=== PATIENT | female | born 1975 | race African-American/Black ===

== ENCOUNTER 2016-02-23 09:41 | Emergency (ER) | payer SELFPAY ==
[2016-02-23 09:49] VITALS: BP 121/61
--- NOTE | 2016-02-23 10:08 | ER Document Report ---
ED Medical Screen (RME) - General Time seen by provider: 10:06 Mode of Arrival: Ambulatory Information source: Patient TRAVEL OUTSIDE OF THE [place] IN LAST 30 DAYS: No - HPI Onset: Other - long time not been to md Onset/Duration: Persistent Quality of pain: Pressure Severity: Moderate Pain Level: 2 - Related Data Smoking: Non-smoker Frequency of alcohol use: None Drug Abuse: None <EDYTA RAYMOND - Last Filed: 02/23/16 10:05> <OLEGARIO ROSS - Last Filed: 03/02/16 12:20> - General Chief Complaint: Urinary Frequency Stated Complaint: FREQUENT URINATION Notes: 40 yo female presents to ed for urine frequency and [facility] told her to check for diabetes. (EDYTA RAYMOND) Course - Laboratory Result Diagrams: 02/23/16 10:20 02/23/16 10:20 <OLEGARIO ROSS - Last Filed: 03/02/16 12:20> - Vital Signs Vital signs: Temp Pulse Resp BP Pulse Ox 98.4 F 73 16 121/61 100 02/23/16 09:48 02/23/16 09:48 02/23/16 09:48 02/23/16 09:48 02/23/16 09:48 (EDYTA RAYMOND) (OLEGARIO ROSS) - Laboratory Laboratory results interpreted by me: 02/23/16 02/23/16 10:20 10:20 Carbon Dioxide 31 H Glucose 73 L Urine Ascorbic Acid 40 H (OLEGARIO ROSS) Doctor's Discharge <EDYTA RAYMOND - Last Filed: 02/23/16 10:05> <OLEGARIO ROSS - Last Filed: 03/02/16 12:20> - Discharge Clinical Impression: Increased frequency of urination Condition: Stable Disposition: HOME, SELF-CARE Additional Instructions: You have been seen and evaluated for concerns that you possibly would be diabetic and urinary frequency since her . Currently your blood sugar is low not high there is no glucose into the urine sore not seeing any active signs of diabetes in terms of the chronic condition of the urinary frequency since your we want that he follow up with primary care physician and may need a referral to a urologist. Follow-up with the primary care physician in 3-5 days return for increasing worsening or new symptoms
[2016-02-23 10:38] LABS: ABSOLUTE EOSINOPHILS # (AUTO) 0.1 10^3/uL (0.0-0.6); ABSOLUTE LYMPHOCYTES (AUTO) 1.5 10^3/uL (0.5-4.7); ABSOLUTE MONOCYTES (AUTO) 0.4 10^3/uL (0.1-1.4); ABSOLUTE NEUT (AUTO) 3.8 10^3/uL (1.7-8.2); BASOPHILS % (AUTO) 0.5 % (0-2); EOSINOPHILS % (AUTO) 2.2 % (0-6); HEMATOCRIT 38.9 % (36.0-47.0); HGB HCT DIFFERENCE 0.1; LYMPHOCYTES % (AUTO) 25.5 % (13-45); MEAN CORPUSCULAR HEMOGLOBIN 31.4 pg (27.0-33.4); MEAN CORPUSCULAR HGB CONC 33.3 g/dL (32.0-36.0); MEAN CORPUSCULAR VOLUME 94 fl (80-97); MONOCYTES % (AUTO) 6.6 % (3-13); RED BLOOD COUNT 4.13 10^6/uL (3.72-5.28); RED CELL DISTRIBUTION WIDTH 13.2 % (11.5-14.0); SEGMENTED NEUTROPHILS % (AUTO) 65.2 % (42-78); WHITE BLOOD COUNT 5.9 10^3/uL (4.0-10.5)
[2016-02-23 10:42] LABS: APPEARANCE,URINE CLEAR; BILIRUBIN,URINE NEGATIVE (NEGATIVE); GLUCOSE, URINE NEGATIVE (NEGATIVE); KETONES,URINE NEGATIVE (NEGATIVE); LEUKOCYTE ESTERASE,URINE NEGATIVE (NEGATIVE); NITRITE,URINE NEGATIVE (NEGATIVE); PROTEIN,URINE NEGATIVE (NEGATIVE); UROBILINOGEN,URINE NEGATIVE mg/dL (<2.0)
[2016-02-23 10:58] LABS: ALANINE AMINOTRANSFERASE 29 U/L (9-52); ALBUMIN 3.8 g/dL (3.5-5.0); ALKALINE PHOSPHATASE 53 U/L (38-126); ANION GAP 9 (5-19); ASPARTATE AMINO TRANSFERASE 24 U/L (14-36); BILIRUBIN,TOTAL 0.5 mg/dL (0.2-1.3); BLOOD UREA NITROGEN 14 mg/dL (7-20); CALCIUM 9.4 mg/dL (8.4-10.2); CARBON DIOXIDE 31 mmol/L (22-30); CHLORIDE 101 mmol/L (98-107); CREATININE RESULT 0.93 mg/dL (0.52-1.25); GLUCOSE 73 mg/dL (75-110); POTASSIUM 4.2 mmol/L (3.6-5.0); SODIUM 140.6 mmol/L (137-145); TOTAL PROTEIN 7.3 g/dL (6.3-8.2)
--- NOTE | 2016-02-23 12:21 | ER Document Report ---
ED GI/ <CODYSABIOLEGARIO - Last Filed: 02/23/16 12:36> - General Mode of Arrival: Ambulatory Information source: Patient TRAVEL OUTSIDE OF THE [place] IN LAST 30 DAYS: No - HPI Patient complains to provider of: Other - frequent urination Onset: Other - x3 weeks Timing/Duration: Persistent Quality of pain: No pain Similar symptoms previously: No Recently seen / treated by doctor: No <KAYLYN ROSE - Last Filed: 02/23/16 16:20> - General Chief Complaint: Urinary Frequency Stated Complaint: FREQUENT URINATION Notes: Patient is a 40 year old female that presents to the emergency department today with complaints of frequent urination along with concerns of diabetes mellitus. Patient states a coworker did a finger stick on her three weeks ago and it was "high". Patient states she has also had finger tingling for quite some time. Patient states she does not have chronic neck problems. (KAYLYN ROSE) Past Medical History - General Information source: Patient Last Menstrual Period: january 2016 - Social History Smoking Status: Unknown if Ever Smoked Cigarette use (# per day): No Chew tobacco use (# tins/day): No Frequency of alcohol use: None Drug Abuse: None Lives with: Family Family History: Reviewed & Not Pertinent Patient has suicidal ideation: No Patient has homicidal ideation: No - Medical History Medical History: Negative Surgical Hx: Negative <KAYLYN ROSE - Last Filed: 02/23/16 16:20> Review of Systems - Review of Systems Constitutional: No symptoms reported EENT: No symptoms reported Cardiovascular: No symptoms reported Respiratory: No symptoms reported Gastrointestinal: No symptoms reported Genitourinary: See HPI, Frequency Female Genitourinary: No symptoms reported Musculoskeletal: denies: Neck pain Skin: No symptoms reported Hematologic/Lymphatic: No symptoms reported Neurological/Psychological: See HPI, Tingling - finger tips -: Yes All other systems reviewed and negative <KAYLYN ROSE - Last Filed: 02/23/16 16:20> Physical Exam - General General appearance: Appears well In distress: None - HEENT Head: Normocephalic, Atraumatic Eyes: Normal Conjunctiva: Normal - Respiratory Respiratory status: No respiratory distress - Cardiovascular Rhythm: Regular - Abdominal Inspection: Normal Distension: No distension Bowel sounds: Normal Tenderness: Nontender - Extremities General upper extremity: Normal inspection, Nontender. No: Edema General lower extremity: Normal inspection, Nontender. No: Edema - Neurological Neuro grossly intact: Yes Cognition: Normal Orientation: AAOx4 - Psychological Associated symptoms: Normal affect, Normal mood - Skin Skin Temperature: Warm Skin Moisture: Dry Skin Color: Normal <KAYLYN ROSE - Last Filed: 02/23/16 16:20> - Vital signs Vitals: Temp Pulse Resp BP Pulse Ox 98.4 F 73 16 121/61 100 02/23/16 09:48 02/23/16 09:48 02/23/16 09:48 02/23/16 09:48 02/23/16 09:48 (OLEGARIO ROSS) (KAYLYN ROSE) Course - Laboratory Result Diagrams: 02/23/16 10:20 02/23/16 10:20 <OLEGARIO ROSS - Last Filed: 02/23/16 12:36> - Laboratory Result Diagrams: 02/23/16 10:20 02/23/16 10:20 <KAYLYN ROSE - Last Filed: 02/23/16 16:20> - Re-evaluation Re-evalutation: 02/23/16 12:34 I personally performed the services described in the documentation, reviewed and edited the documentation which was dictated to my scribe in my presence, and it accurately records my words and actions. Patient presents emergency Department with a 2 full complaint. She said she recently moved here from [facility] that at work today someone checked her blood sugar and told her she might have diabetes. Patient presents emergency department her blood sugars low she has no glucose in the urine also reports that since her over a year ago she's been playing more than usual but is not any different than it has been since her or year ago. She is well-appearing nontoxic with a nonacute medical screening examination negative acute labs urinary tract infection or signs of active diabetes. Discussed with her plans for calling Medicare calling to get a primary care physician who is seeing new patients at that point she can get referred to a urologist for further evaluation and follow-up. She verbalizes understanding of this given discharge instructions stable to be discharged follow-up for increasing worsening or new symptoms (OLEGARIO ROSS) - Vital Signs Vital signs: Temp Pulse Resp BP Pulse Ox 98.4 F 73 16 121/61 100 02/23/16 09:48 02/23/16 09:48 02/23/16 09:48 02/23/16 09:48 02/23/16 09:48 (OLEGARIO ROSS) (KAYLYN ROSE) - Laboratory Laboratory results interpreted by me: 02/23/16 02/23/16 10:20 10:20 Carbon Dioxide 31 H Glucose 73 L Urine Ascorbic Acid 40 H (OLEGARIO ROSS) (KAYLYN ROSE) Scribe Documentation - Scribe Written by Scribe:: Camille Quintana, 1620 (02/23/2016) acting as scribe for :: Cody <KAYLYN ROSE - Last Filed: 02/23/16 16:20>
--- NOTE | 2016-03-05 10:54 | ER Document Report ---
Doctor's Note Notes: 03/05/16 10:52 diagnosis 1. chronic urinary frequency
== END 2016-02-23 12:37 | disposition home or self-care (01) ==
LOC: ER 09:41
DX: R35.0 Frequency of micturition (principal)
CPT/HCPCS: 36415; 80053; 81001; 84703; 85025; 99283

== ENCOUNTER 2016-06-21 21:59 | Emergency (ER) | payer SELFPAY ==
[2016-06-21 22:44] VITALS: BP 130/79
== END 2016-06-21 23:13 | disposition left against medical advice (07) ==
LOC: ER 21:59
DX: Z53.21 Procedure and treatment not carried out due to patient leaving prior to being seen by health care provider (principal)

== ENCOUNTER 2016-06-22 09:38 | Emergency (ER) | payer SELFPAY ==
--- NOTE | 2016-06-22 10:07 | ER Document Report ---
ED Medical Screen (RME) - General Chief Complaint: Vag Bleeding, +preg <12wks Stated Complaint: VAGINAL BLEEDING/PREGNACY Time seen by provider: 10:05 Mode of Arrival: Ambulatory Information source: Patient Notes: 40-year-old female 6, para 4, last normal menstrual period at the end of March presents to the emergency room with vaginal bleeding. Patient does report cramping. Patient does not know what her blood type is. Bedside sono performed to establish a possible second of third trimester . That does not appear to be the case. TRAVEL OUTSIDE OF THE [place] IN LAST 30 DAYS: No - Related Data Allergies/Adverse Reactions: No Known Allergies Allergy (Verified 06/22/16 09:44) Past Medical History Renal/ Medical History: Denies: Hx Peritoneal Dialysis Physical Exam - Vital signs Vitals: Temp Pulse Resp BP Pulse Ox 98.6 F 82 18 127/69 H 98 06/22/16 09:44 06/22/16 09:44 06/22/16 09:44 06/22/16 09:44 06/22/16 09:44 Course - Vital Signs Vital signs: Temp Pulse Resp BP Pulse Ox 98.6 F 82 18 127/69 H 98 06/22/16 09:44 06/22/16 09:44 06/22/16 09:44 06/22/16 09:44 06/22/16 09:44
[2016-06-22 10:50] LABS: ABSOLUTE EOSINOPHILS # (AUTO) 0.1 10^3/uL (0.0-0.6); ABSOLUTE MONOCYTES (AUTO) 0.5 10^3/uL (0.1-1.4); ABSOLUTE NEUT (AUTO) 5.3 10^3/uL (1.7-8.2); BASOPHILS % (AUTO) 0.4 % (0-2); EOSINOPHILS % (AUTO) 1.1 % (0-6); HEMATOCRIT 36.4 % (36.0-47.0); HEMOGLOBIN 12.1 g/dL (12.0-15.5); HGB HCT DIFFERENCE -0.1; LYMPHOCYTES % (AUTO) 24.8 % (13-45); MEAN CORPUSCULAR HEMOGLOBIN 31.5 pg (27.0-33.4); MEAN CORPUSCULAR HGB CONC 33.2 g/dL (32.0-36.0); MEAN CORPUSCULAR VOLUME 95 fl (80-97); MONOCYTES % (AUTO) 6.9 % (3-13); RED BLOOD COUNT 3.85 10^6/uL (3.72-5.28); RED CELL DISTRIBUTION WIDTH 13.6 % (11.5-14.0); SEGMENTED NEUTROPHILS % (AUTO) 66.8 % (42-78); WHITE BLOOD COUNT 7.9 10^3/uL (4.0-10.5)
[2016-06-22 11:09] LABS: ALANINE AMINOTRANSFERASE 22 U/L (9-52); ALBUMIN 3.5 g/dL (3.5-5.0); ALKALINE PHOSPHATASE 54 U/L (38-126); ANION GAP 7 (5-19); ASPARTATE AMINO TRANSFERASE 24 U/L (14-36); BILIRUBIN,DIRECT 0.2 mg/dL (0.0-0.4); BILIRUBIN,TOTAL 0.5 mg/dL (0.2-1.3); BLOOD UREA NITROGEN 18 mg/dL (7-20); CALCIUM 9.1 mg/dL (8.4-10.2); CARBON DIOXIDE 29 mmol/L (22-30); CHLORIDE 105 mmol/L (98-107); CREATININE RESULT 0.96 mg/dL (0.52-1.25); GLUCOSE 86 mg/dL (75-110); POTASSIUM 4.1 mmol/L (3.6-5.0); SODIUM 141.1 mmol/L (137-145); TOTAL PROTEIN 6.6 g/dL (6.3-8.2)
--- NOTE | 2016-06-22 11:32 | ER Document Report ---
ED GI/ - General Chief Complaint: Vag Bleeding, +preg <12wks Stated Complaint: VAGINAL BLEEDING/PREGNACY Time seen by provider: 11:29 Mode of Arrival: Ambulatory Information source: Patient Notes: 40-year-old female presents to ED for vaginal bleeding while she is supposed to be 9 weeks . Last menstrual period was the end of March. Patient states she has some cramping and does not know what her blood type is. Patient states she has been. 6 times has 4 live children and 1 miscarriage TRAVEL OUTSIDE OF THE [place] IN LAST 30 DAYS: No - HPI Patient complains to provider of: Abdominal pain - Cramping, Vaginal bleeding Onset: Yesterday Timing/Duration: Intermittent Quality of pain: Cramping Severity at maximum: Moderate Severity in ED: Moderate Pain Level: 3 Location: Pelvis Vaginal bleeding (Compared to normal period): Similar Associated symptoms: Other - Vaginal bleeding Exacerbated by: Denies Relieved by: Denies Similar symptoms previously: Yes Recently seen / treated by doctor: Yes - Related Data Allergies/Adverse Reactions: No Known Allergies Allergy (Verified 06/22/16 11:08) Past Medical History - General Information source: Patient - Social History Smoking Status: Never Smoker Chew tobacco use (# tins/day): No Frequency of alcohol use: None Drug Abuse: None Occupation: housekeeping Lives with: Spouse/Significant other - In children Family History: Arthritis, CAD, CVA, DM, Hyperlipidemia, Hypertension Patient has suicidal ideation: No Patient has homicidal ideation: No - Past Medical History Cardiac Medical History: Reports: None Pulmonary Medical History: Reports: None EENT Medical History: Reports: None Neurological Medical History: Reports: None Endocrine Medical History: Reports: Hx Hypothyroidism Renal/ Medical History: Reports: None Malignancy Medical History: Reports: None GI Medical History: Reports: None Musculoskeltal Medical History: Reports None Skin Medical History: Reports None Psychiatric Medical History: Reports: None Traumatic Medical History: Reports: None Infectious Medical History: Reports: None Past Surgical History: Reports: Hx Section Review of Systems - Review of Systems Constitutional: No symptoms reported EENT: No symptoms reported Cardiovascular: No symptoms reported Respiratory: No symptoms reported Gastrointestinal: No symptoms reported Genitourinary: No symptoms reported Female Genitourinary: , Vaginal bleeding, Other - Mild cramping Musculoskeletal: No symptoms reported Skin: No symptoms reported Hematologic/Lymphatic: No symptoms reported Neurological/Psychological: No symptoms reported -: Yes All other systems reviewed and negative Physical Exam - Vital signs Vitals: Temp Pulse Resp BP Pulse Ox 98.6 F 82 18 127/69 H 98 06/22/16 09:44 06/22/16 09:44 06/22/16 09:44 06/22/16 09:44 06/22/16 09:44 Interpretation: Normal - General General appearance: Appears well, Alert - HEENT Head: Normocephalic, Atraumatic Eyes: Normal Pupils: PERRL - Respiratory Respiratory status: No respiratory distress Chest status: Nontender Breath sounds: Normal Chest palpation: Normal - Cardiovascular Rhythm: Regular Heart sounds: Normal auscultation Murmur: No - Abdominal Inspection: Gravid female Distension: No distension Bowel sounds: Normal Tenderness: Tender - Pelvic Organomegaly: No organomegaly - Back Back: Normal, Nontender - Extremities General upper extremity: Normal inspection, Nontender, Normal color, Normal ROM , Normal temperature General lower extremity: Normal inspection, Nontender, Normal color, Normal ROM , Normal temperature, Normal weight bearing. No: Yulisa's sign - Neurological Neuro grossly intact: Yes Cognition: Normal Orientation: AAOx4 [place] Coma Scale Eye Opening: Spontaneous [place] Coma Scale Verbal: Oriented [place] Coma Scale Motor: Obeys Commands [place] Coma Scale Total: 15 Speech: Normal Motor strength normal: LUE, RUE, LLE, RLE Sensory: Normal - Psychological Associated symptoms: Normal affect, Normal mood - Skin Skin Temperature: Warm Skin Moisture: Dry Skin Color: Normal Course - Re-evaluation Re-evalutation: 06/22/16 12:06 Discussed urine and ultrasound with patient and written report of blood work urine and ultrasound given to patient to follow-up with the [facility]. Patient to repeat her hCG Quant in 48 hours. - Vital Signs Vital signs: Temp Pulse Resp BP Pulse Ox 98.6 F 82 18 127/69 H 98 06/22/16 09:44 06/22/16 09:44 06/22/16 09:44 06/22/16 09:44 06/22/16 09:44 - Laboratory Result Diagrams: 06/22/16 10:25 06/22/16 10:25 - Diagnostic Test Radiology reviewed: Image reviewed, Reports reviewed Discharge - Discharge Clinical Impression: Vaginal bleeding, Negative test Condition: Stable Disposition: HOME, SELF-CARE Additional Instructions: VAGINAL BLEEDING: You are having an episode of abnormal bleeding. Causes of abnormal vaginal bleeding can include miscarriage or tubal , tumors such as cancer or benign fibroids, medication effects, or hormone imbalance. Testing can eliminate unsuspected , tumors, or infection as a cause. "Dysfunctional uterine bleeding" is due to hormone imbalance, and is especially common at times when the normal cycle is disturbed -- whether by recent , use of control pills or hormones, or impending menopause. If the bleeding is innocent, most commonly a short course of hormones is given to restore the uterus to normal. Sometimes, the normal menstrual cycle corrects itself naturally. Sometimes , brief hormone therapy, or even a D&C is required. Your physician will advise you. Treatment for anemia may be required if bleeding is severe. You should rest and avoid intercourse until the bleeding is controlled. Call the doctor or return for re-examination if you feel faint, have increasing pain, or have a major increase in the amount of bleeding. NORMAL EXAM AND WORKUP: At this time, except for vaginal bleeding, your examination and workup show no significant abnormality. No significant abnormal physical findings were noted. All laboratory, EKG, and imaging (x-ray, CT scans, ultrasound) studies that were ordered show no significant abnormality. Although your examination and all studies that were ordered showed no significant abnormal finding, there are no examinations and no studies that are 100% accurate. There is always the possibility that some abnormality could exist and not be detected with physical examination or within the limits and capabilities of laboratory and other studies. You should return or follow up as you were instructed on your visit today for further evaluation if your symptoms do not resolve. FOLLOW-UP CARE: If you have been referred to a physician for follow-up care, call the physician s office for an appointment as you were instructed or within the next two days. If you experience worsening or a significant change in your symptoms (very heavy bleeding with large clots of blood, passage of tissue, more severe abdominal / pelvic pain or cramping, feeling faint or severe weakness, fever, etc.), notify the physician immediately or return to the Emergency Department at any time for re-evaluation. [facility] [address] [place] [address] [phone] Forms: Follow-Up Laboratory Testing, Return to Work Referrals: [facility] [Provider Group] - Follow up as needed
[2016-06-22 12:12] VITALS: BP 110/52
== END 2016-06-22 12:10 | disposition home or self-care (01) ==
LOC: ER 09:38
DX: N93.9 Abnormal uterine and vaginal bleeding, unspecified (principal); Z32.02 Encounter for pregnancy test, result negative; R25.2 Cramp and spasm
CPT/HCPCS: 36415; 76817; 80053; 84702; 85025; 86900; 86901; 93976; 99284

== ENCOUNTER → 2016-07-05 | Outpatient (CLI) | payer SELFPAY | LOC: LAB 13:27 | PROVIDERS: ATTEND Nurse Practitioner Family | DX: O20.9 Hemorrhage in early pregnancy, unspecified (principal) | CPT/HCPCS: 36415; 84702 ==

== ENCOUNTER → 2016-10-26 | Outpatient (CLI) | payer SELFPAY | LOC: OD 11:45 | PROVIDERS: ATTEND Emergency Medicine | DX: O46.90 Antepartum hemorrhage, unspecified, unspecified trimester (principal) | CPT/HCPCS: 36415; 84702 ==

== ENCOUNTER 2016-11-19 18:17 | Emergency (ER) | payer SELFPAY ==
--- NOTE | 2016-11-19 20:49 | ER Document Report ---
ED Respiratory Problem - General Chief Complaint: Cough Stated Complaint: COUGH Time Seen by Provider: 11/19/16 20:29 Mode of Arrival: Ambulatory Information source: Patient Notes: 41-year-old female presents to ED for cough congestion times a week. She has runny nose with postnasal drip. TRAVEL OUTSIDE OF THE [place] IN LAST 30 DAYS: No - HPI Patient complains to provider of: Cough Onset: Last week Duration: Continuous Initiating Event: URI Quality of pain: Achy Severity: Severe Pain Level: 5 Context: denies: Smoker Cough: Productive Sputum amount: Small Sputum color: [place] Associated symptoms: Chills, Cough, Fever, PND, Runny nose, Sinus pain/pressure Similar symptoms previously: Yes Recently seen / treated by doctor: Yes - Related Data Allergies/Adverse Reactions: No Known Allergies Allergy (Verified 11/19/16 18:30) Past Medical History - General Information source: Patient - Social History Smoking Status: Never Smoker Cigarette use (# per day): No Chew tobacco use (# tins/day): No Smoking Education Provided: No Frequency of alcohol use: None Drug Abuse: None Lives with: Family Family History: Arthritis, CAD, CVA, DM, Hyperlipidemia, Hypertension. denies: COPD, Malignancy, Thyroid Disfunction Patient has suicidal ideation: No Patient has homicidal ideation: No - Past Medical History Cardiac Medical History: Reports: None Pulmonary Medical History: Reports: None EENT Medical History: Reports: None Neurological Medical History: Reports: None Endocrine Medical History: Reports: Hx Hypothyroidism Renal/ Medical History: Reports: None Malignancy Medical History: Reports: None GI Medical History: Reports: None Musculoskeltal Medical History: Reports None Skin Medical History: Reports None Psychiatric Medical History: Reports: None Traumatic Medical History: Reports: None Infectious Medical History: Reports: None Past Surgical History: Reports: Hx Section - Immunizations Immunizations up to date: Yes Hx Diphtheria, Pertussis, Tetanus Vaccination: Yes Review of Systems - Review of Systems Constitutional: Fever, Recent illness EENT: Nose discharge, Sinus discharge, Throat pain Cardiovascular: No symptoms reported Respiratory: Cough Gastrointestinal: No symptoms reported Genitourinary: No symptoms reported Female Genitourinary: No symptoms reported Musculoskeletal: No symptoms reported Skin: No symptoms reported Hematologic/Lymphatic: No symptoms reported Neurological/Psychological: No symptoms reported -: Yes All other systems reviewed and negative Physical Exam - Vital signs Vitals: Temp Pulse Resp BP Pulse Ox 99.0 F 82 16 128/72 H 97 11/19/16 18:28 11/19/16 18:28 11/19/16 18:28 11/19/16 18:28 11/19/16 18:28 Interpretation: Normal - General General appearance: Appears well, Alert - HEENT Head: Normocephalic, Atraumatic Eyes: Normal Pupils: PERRL Ears: Normal External canal: Normal Tympanic membrane: Normal Sinus: Normal Nasal: Swelling, Clear rhinorrhea Mouth/Lips: Normal Mucous membranes: Normal Pharynx: Post nasal drainage Neck: Normal - Respiratory Respiratory status: No respiratory distress Chest status: Nontender Breath sounds: Decreased air movement. No: Rales, Rhonchi, Stridor, Wheezing Chest palpation: Normal - Cardiovascular Rhythm: Regular Heart sounds: Normal auscultation Murmur: No - Abdominal Inspection: Normal Distension: No distension Bowel sounds: Normal Tenderness: Nontender Organomegaly: No organomegaly - Back Back: Normal, Nontender - Extremities General upper extremity: Normal inspection, Nontender, Normal color, Normal ROM , Normal temperature General lower extremity: Normal inspection, Nontender, Normal color, Normal ROM , Normal temperature, Normal weight bearing. No: Yulisa's sign - Neurological Neuro grossly intact: Yes Cognition: Normal Orientation: AAOx4 [place] Coma Scale Eye Opening: Spontaneous [place] Coma Scale Verbal: Oriented [place] Coma Scale Motor: Obeys Commands [place] Coma Scale Total: 15 Speech: Normal Motor strength normal: LUE, RUE, LLE, RLE Sensory: Normal - Psychological Associated symptoms: Normal affect, Normal mood - Skin Skin Temperature: Warm Skin Moisture: Dry Skin Color: Normal Course - Re-evaluation Re-evalutation: 11/19/16 21:21 Chest x-ray with patient will discharge home to follow-up with her primary doctor. Assessment is consistent with upper respiratory infection chest x-ray also is consistent with upper respiratory infection. - Vital Signs Vital signs: Temp Pulse Resp BP Pulse Ox 98.8 F 91 16 127/72 H 94 11/19/16 22:11 11/19/16 22:11 11/19/16 22:11 11/19/16 22:11 11/19/16 22:11 - Diagnostic Test Radiology reviewed: Image reviewed, Reports reviewed Discharge - Discharge Clinical Impression: URI (upper respiratory infection) Qualifiers: URI type: unspecified URI Qualified Code(s): J06.9 - Acute upper respiratory infection, unspecified Condition: Stable Disposition: HOME, SELF-CARE Instructions: Family Physicians / Practices Additional Instructions: UPPER RESPIRATORY ILLNESS: You have a viral infection of the respiratory passages -- a "cold." This common infection causes nasal congestion, drainage, and often sore throat and cough. It is highly contagious. The disease usually lasts about 10 to 14 days. There is no "cure" for the viral infection -- it must run its course. If there is a complication, such as bacterial infection in the nose, sinuses, middle ear, or bronchial tubes, antibiotics may be required. The antibiotics won't affect the virus. Drink plenty of fluids. A humidifier may help. An expectorant medication or decongestant may make you more comfortable. Use acetaminophen or ibuprofen for fever or aches. See the doctor if fever persists over two days, if there is any significant worsening of your symptoms, or if you simply fail to improve as expected. COUGH-SUPPRESSANT & EXPECTORANT MEDICATION: You are to use a cough medication as needed for relief of symptoms. This medicine is a combination of an expectorant (to make the mucous thinner and more easily "coughed up") and a cough suppressant (to reduce the frequency of coughing). The cough-suppressant medicine is related to narcotics. You may experience mild nausea and sleepiness. Some patients who are very sensitive to narcotics may have stomach pain from this medicine. Taking the medicine with food reduces these side effects. Do not drive or work with machinery until you know how this medicine affects you. The expectorant should have no side effects. Iodine-containing expectorants (such as organidin) should not be taken by persons with active thyroid disease unless approved by your doctor. Call the doctor if you develop shortness of breath, hives, rash, itching, lightheadedness, or severe nausea and vomiting. USE OF ACETAMINOPHEN (Tylenol): Acetaminophen may be taken for pain relief or fever control. It's much safer than aspirin, offering a wider range of "safe" dosages. It is safe during . Some brand names are Tylenol, Panadol, Datril, Anacin 3, Tempra, and Liquiprin. Acetaminophen can be repeated every four hours. The following are maximum recommended dosages: >89 pounds or adults 650 mg to 900 mg Acetaminophen can be repeated every four hours. Maximum dose not to exceed 4000 mg a day. FOLLOW-UP CARE: If you have been referred to a physician for follow-up care, call the physician s office for an appointment as you were instructed or within the next two days. If you experience worsening or a significant change in your symptoms, notify the physician immediately or return to the Emergency Department at any time for re-evaluation. Forms: Elevated Blood Pressure, Return to Work
--- NOTE | 2016-11-19 21:15 | RADIOLOGY REPORT (SQ) ---
EXAM DESCRIPTION: CHEST PA/LAT COMPLETED DATE/TIME: 11/19/2016 9:03 pm REASON FOR STUDY: cough congestion and fever COMPARISON: None. EXAM PARAMETERS: NUMBER OF VIEWS: two views TECHNIQUE: Digital Frontal and Lateral radiographic views of the chest acquired. RADIATION DOSE: NA LIMITATIONS: none FINDINGS: LUNGS AND PLEURA: No opacities, masses or pneumothorax. No pleural effusion. MEDIASTINUM AND HILAR STRUCTURES: No masses or contour abnormalities. HEART AND VASCULAR STRUCTURES: Heart normal size. No evidence for failure. BONES: No acute findings. HARDWARE: None in the chest. OTHER: No other significant finding. IMPRESSION: NO SIGNIFICANT RADIOGRAPHIC FINDING IN THE CHEST. TECHNICAL DOCUMENTATION: JOB ID: [id number] [employer]- All Rights Reserved
[2016-11-19 22:13] VITALS: BP 127/72
== END 2016-11-19 22:11 | disposition home or self-care (01) ==
LOC: ER 18:17
DX: J06.9 Acute upper respiratory infection, unspecified (principal); R09.82 Postnasal drip; R68.83 Chills (without fever); R09.89 Other specified symptoms and signs involving the circulatory and respiratory systems; J34.89 Other specified disorders of nose and nasal sinuses
CPT/HCPCS: 71020; 99283

== ENCOUNTER 2017-02-28 16:47 | Emergency (ER) | payer SELFPAY ==
[2017-02-28 17:15] LABS: APPEARANCE,URINE CLEAR; BILIRUBIN,URINE NEGATIVE (NEGATIVE); COLOR,URINE STRAW; GLUCOSE, URINE NEGATIVE (NEGATIVE); KETONES,URINE NEGATIVE (NEGATIVE); LEUKOCYTE ESTERASE,URINE NEGATIVE (NEGATIVE); NITRITE,URINE NEGATIVE (NEGATIVE); PROTEIN,URINE NEGATIVE (NEGATIVE); UROBILINOGEN,URINE NEGATIVE mg/dL (<2.0)
--- NOTE | 2017-02-28 17:50 | ER Document Report ---
ED GI/ - General Chief Complaint: OB Problem (<20wks) Stated Complaint: ABDOMINAL DISCOMFORT Time Seen by Provider: 02/28/17 17:33 Notes: Patient is a -5, 5-week 41-year-old female who is referred over to the the emergency department by the health department with a chief complaint of vaginal bleeding. Patient states that she has had issues with clear vaginal drainage every day since her last vaginal delivery of her child in 2011. She does state that she does feel anxious about making it to the bathroom to urinate because she feels like she is leaking. She states she has never been evaluated for this by a specialist but was referred to one from an COMMERCIAL CONSTRUCTION ESTIMATOR a couple years ago. She states she has had 2 miscarriages in the past 24 months. She states she is currently sexually active with one partner who she states is symptom-free and she is not concerned for STDs. Otherwise she denies any vaginal pain, pelvic cramping she has not had an ultrasound confirming this . TRAVEL OUTSIDE OF THE [place].S. IN LAST 30 DAYS: No - Related Data Allergies/Adverse Reactions: No Known Allergies Allergy (Verified 11/19/16 18:30) Home Medications: Current Home Medications No Home Medications 02/28/17 [History] Past Medical History - Social History Smoking Status: Never Smoker Chew tobacco use (# tins/day): No Frequency of alcohol use: None Drug Abuse: None Family History: Arthritis, CAD, CVA, DM, Hyperlipidemia, Hypertension. denies: COPD, Malignancy, Thyroid Disfunction Patient has suicidal ideation: No Patient has homicidal ideation: No Endocrine Medical History: Reports: Hx Hypothyroidism Renal/ Medical History: Denies: Hx Peritoneal Dialysis Past Surgical History: Reports: Hx Section - x3 - Immunizations Immunizations up to date: Yes Hx Diphtheria, Pertussis, Tetanus Vaccination: Yes Review of Systems - Review of Systems Constitutional: No symptoms reported Cardiovascular: No symptoms reported Respiratory: No symptoms reported Gastrointestinal: No symptoms reported Genitourinary: See HPI Female Genitourinary: See HPI -: Yes All other systems reviewed and negative Physical Exam - Vital signs Vitals: Temp Pulse Resp BP Pulse Ox 98.8 F 88 18 119/64 100 02/28/17 17:00 02/28/17 17:00 02/28/17 17:00 02/28/17 17:00 02/28/17 17:00 - Notes Notes: PHYSICAL EXAM GENERAL: Alert, interacts well. LUNGS: Clear to auscultation bilaterally, no wheezes, rales, or rhonchi. No respiratory distress. HEART: Regular rate and rhythm. No murmurs, gallops, or rubs. ABDOMEN: Soft, nondistended, nontender. No guarding, rebound, or rigidity.. Bowel sounds present in all 4 quadrants. FEMALE : Normal external exam. No evidence of lesions, lacerations, bruising or vesicles. Speculum exam normal cervix closed. No evidence of vaginal discharge with odor. No evidence of lesions. No vaginal bleeding. EXTREMITIES: Moves all 4 extremities spontaneously. No edema, radial and dorsalis pedis pulses 2/4 bilaterally. No cyanosis. NEUROLOGICAL: Alert and oriented x4. Normal speech. PSYCH: Normal affect, normal mood. SKIN: Warm, dry, normal turgor. No rashes or lesions noted. Course - Re-evaluation Re-evalutation: 02/28/17 20:16 Patient is a 41-year-old female is hemodynamically stable, no acute distress and afebrile. Concern on transvaginal ultrasound for presence of a gestational sac without yolk or pole this may be due to young state of . Beta-hCG is 18,464. Given that patient is hemodynamically stable, will have her follow up with her COMMERCIAL CONSTRUCTION ESTIMATOR in the next 48-72 hours for repeat hCG and ultrasound. Regarding her complaint of vaginal leakage it sounds mostly consistent with stress incontinence. Discussed with her to follow-up with her COMMERCIAL CONSTRUCTION ESTIMATOR regarding today's results and otherwise will need to be referred to a urologist. Patient agrees with plan and is stable for discharge home - Vital Signs Vital signs: Temp Pulse Resp BP Pulse Ox 98.4 F 92 18 109/89 H 99 02/28/17 20:27 02/28/17 20:27 02/28/17 20:27 02/28/17 20:27 02/28/17 20:27 - Laboratory Laboratory results interpreted by me: 02/28/17 02/28/17 16:50 18:09 Beta HCG, Quant 70059.00 H Urine HCG, Qual POSITIVE H - Diagnostic Test Radiology reviewed: Reports reviewed Discharge - Discharge Clinical Impression: Vaginal discharge during in first trimester Condition: Stable Disposition: HOME, SELF-CARE Additional Instructions: : You are . care is best started as early in as possible. If you're unsure about continuing this , you should discuss this with your physician or with heater operator helper at [facility]. You should take only medications approved by your physician. Acetaminophen can safely be taken for minor pains. As a rule, medication for chronic conditions such as asthma or seizures can safely be continued. You should discuss with the physician every medicine you take. Any regular exercise program can be continued. Talk to your physician, however, before engaging in competitive or demanding sports. Alcohol, smoking, and "street drugs" are dangerous to your baby. Cocaine is especially dangerous. Don't use any illicit drugs! THREATENED MISCARRIAGE: You have been evaluated for a possible miscarriage. At this time, there is no indication that a miscarriage will occur. Most women with your symptoms will go on to have a perfectly normal baby. However, careful observation will be necessary. A miscarriage occurs when the fetus is abnormal. There is no medicine or treatment for it. You should rest in bed until the symptoms have resolved. Do not douche or have sex for at least a week, or until OK'd by the doctor. Call the doctor or return for re-examination if there is an increase in bleeding or cramping, or passage of tissue. REPEAT BLOOD TEST: At this time, it is uncertain if you have a viable . During the first three months of , the hormone produced from the placenta will steadily rise, usually doubling in value every 2 - 3 days. In order to determine if your is viable and likely be succesful, a repeat of this blood test for the hormone is recommended in 2 - 3 days. An order for this test to be done as an outpatient is being provided. After you have this repeat test done, call your doctor or call us for the results. If the value of the test is increasing as would be expected in a normal , then your is likely to be ok. However, if the value of the test is declining, it will suggest something has happened with your and it will not likely be a successful . FOLLOW-UP CARE: If you have been referred to a physician for follow-up care, call the physician s office for an appointment as you were instructed or within the next two days. If you experience worsening or a significant change in your symptoms (very heavy bleeding with large clots of blood, passage of tissue, more severe abdominal / pelvic pain or cramping, feeling faint or severe weakness, fever, etc.), notify the physician immediately or return to the Emergency Department at any time for re-evaluation. OBSTETRIC-GYNECOLOGIC (OB-LINE PRODUCER) PHYSICIANS IN [place]: [facility] [address] [place] [address] [phone] Forms: Follow-Up Laboratory Testing, Return to Work [facility] - [facility]17 [facility] [Provider Group] - 03/02/17
--- NOTE | 2017-02-28 20:05 | RADIOLOGY REPORT (SQ) ---
EXAM DESCRIPTION: U/S OB TRANSVAG W/DOPPLER COMPLETED DATE/TIME: 02/28/2017 7:46 pm REASON FOR STUDY: pelvic cramping COMPARISON: None. TECHNIQUE: Transvaginal static and realtime grayscale images acquired of the pelvis. Additional gauri cted spectral and color Doppler images recorded. All images stored on PACs. [facility],360 LIMITATIONS: None. FINDINGS: UTERUS: No masses. No anomalies. GESTATIONAL SAC: Yes. YOLK SAC: No. POLE: No. RIGHT ADNEXA: Ovary not identified. No adnexal free fluid. No adnexal masses. LEFT ADNEXA: Ovary not identified. No adnexal free fluid. No adnexal masses. FREE FLUID: None. OTHER: No other significant finding. IMPRESSION: Suspect missed or pseudo gestational sac. At the current beta HCG level should have pole visible. CONSIDER F/U BHCG AND/OR ULTRASOUND FOR VERIFICATION AND TO EXCLUDE ECTOPIC . Trimester of : First - 0 to 13 weeks. TECHNICAL DOCUMENTATION: JOB ID: [id number]- All Rights Reserved
[2017-02-28 20:30] VITALS: BP 109/89
[2017-02-28 20:54] LABS: T.VAGINALIS (WET MOUNT) NO TRICHOMONAS SEEN; WBCS (WET MOUNT) FEW WBCS SEEN; YEAST (WET MOUNT) NO YEAST SEEN
[2017-02-28 22:17] LABS: CHLAM PCR NOT DETECTED (NOT DETECT); GON PCR NOT DETECTED (NOT DETECT)
== END 2017-02-28 20:35 | disposition home or self-care (01) ==
LOC: ER 16:47
DX: O26.91 Pregnancy related conditions, unspecified, first trimester (principal); N89.8 Other specified noninflammatory disorders of vagina; O09.521 Supervision of elderly multigravida, first trimester; Z3A.01 Less than 8 weeks gestation of pregnancy
CPT/HCPCS: 36415; 76817; 81001; 81025; 84702; 86900; 86901; 87210; 87491; 87591; 93976; 99284

== ENCOUNTER → 2017-03-02 | Outpatient (CLI) | payer SELFPAY | LOC: HH 16:38 | PROVIDERS: ATTEND Nurse Practitioner Women's Health | DX: O36.80X0 Pregnancy with inconclusive fetal viability, not applicable or unspecified (principal) | CPT/HCPCS: 84702 ==

== ENCOUNTER 2017-03-15 17:31 | Emergency (ER) | payer SELFPAY ==
--- NOTE | 2017-03-15 22:10 | ER Document Report ---
HPI - HPI Pain Level: 1 Notes: Patient is a 41-year-old female who is approximately 8 weeks who presents to the ED complaining of vaginal spotting x this afternoon. Patient is usually seen by an BOOKING CLERK at the health department and they have been monitoring her hCG due to previous miscarriages. Patient states that she otherwise feels well. She is eating and drinking without difficulties. She is urinating normally and having normal bowel movements. Patient has not noticed any other vaginal odor or discharge. No other concerns or complaints. Denies any other significant medical history or drug allergies. Denies any IV drug use. Denies any headache, fever, URI, sore throat, chest pain, palpitations, syncope, cough, shortness of breath, wheeze, dyspnea, abdominal pain, nausea/ vomiting/diarrhea, urinary retention, dysuria, hematuria, back pain, loss of control of bowel or bladder, numbness/tingling, saddle anesthesia, muscle paralysis/weakness, or rash. - ROS Systems Reviewed and Negative: Yes All other systems reviewed and negative - CONSTITUTIONAL Constitutional: DENIES: Fever, Chills - EENT EENT: DENIES: Sore Throat, Ear Pain, Eye problems - NEURO Neurology: REPORTS: Weakness. DENIES: Headache, Vision blurred, Dizzinesss / Vertigo - CARDIOVASCULAR Cardiovascular: DENIES: Chest pain - RESPIRATORY Respiratory: DENIES: Trouble Breathing, Coughing - GASTROINTESTINAL Gastrointestinal: DENIES: Abdominal Pain, Black / Bloody Stools - URINARY Urinary: DENIES: Dysuria, Urgency, Frequency - REPRODUCTIVE LMP: 1.5 months ago Reproductive: REPORTS: :, Abnormal bleeding / discharge. DENIES: Postmenopausal - MUSCULOSKELETAL Musculoskeletal: DENIES: Extremity pain Past Medical History - General Last Menstrual Period: Social History Smoking Status: Smoker,Current Status Unk Chew tobacco use (# tins/day): No Frequency of alcohol use: None Drug Abuse: None Family History: Arthritis, CAD, CVA, DM, Hyperlipidemia, Hypertension. denies: COPD, Malignancy, Thyroid Disfunction Patient has suicidal ideation: No Patient has homicidal ideation: No Endocrine Medical History: Reports: Hx Hypothyroidism Renal/ Medical History: Denies: Hx Peritoneal Dialysis Past Surgical History: Reports: Hx Section - x3 - Immunizations Immunizations up to date: Yes Hx Diphtheria, Pertussis, Tetanus Vaccination: Yes Vertical Provider Document - CONSTITUTIONAL Agree With Documented VS: Yes Notes: PHYSICAL EXAMINATION: GENERAL: Well-appearing, well-nourished and in no acute distress. A&Ox4. LUNGS: Breath sounds clear to auscultation bilaterally and equal. No wheezes rales or rhonchi. HEART: Regular rate and rhythm without murmurs, rubs, gallops. ABDOMEN: Soft, nontender, nondistended abdomen. No guarding, no rebound. No masses appreciated. Normal bowel sounds present. No CVA tenderness bilaterally. : deferred Extremities: No cyanosis, clubbing, or edema b/l. Peripheral pulses 2+. Capillary refill less than 3 seconds. NEUROLOGICAL: Normal speech, normal gait. Normal sensory, motor exams PSYCH: Normal mood, normal affect. SKIN: Warm, Dry, normal turgor, no rashes or lesions noted. - INFECTION CONTROL TRAVEL OUTSIDE OF THE [place].S. IN LAST 30 DAYS: No - RESPIRATORY O2 Sat by Pulse Oximetry: 100 Course - Re-evaluation Re-evalutation: 03/16/17 01:30 Patient is an afebrile, well-hydrated, 41-year-old female who presents to the ED with a threatened based on H&P today. Vitals are stable. PE is otherwise unremarkable. CBC, CMP, hCG, urinalysis were unremarkable for any acute pathology. Transvaginal ultrasound did show possible hemorrhage ongoing, but a living intrauterine with a heart rate of 140 bpm. Cervix is closed. Low suspicion/risk for acute appendicitis, bowel obstruction, acute cholecystitis, acute cholangitis, perforated diverticulitis, incarcerated hernia , pancreatitis, perforated ulcer, peritonitis, sepsis, pelvic inflammatory disease, ectopic , tubo-ovarian abscess, ovarian torsion, or other systemic emergent condition at this time. Patient is aware that her condition can change from initial presentation and she needs to monitor symptoms closely and seek medical attention if any acute changes. Conservative measures otherwise for symptoms. Recheck with OBGYN in 2-3 days. Recheck with your PCM in 1 week. Return to the ED with any worsening/concerning symptoms otherwise as reviewed in discharge. Patient is in agreement. - Vital Signs Vital signs: Temp Pulse Resp BP Pulse Ox 98.7 F 89 18 116/68 100 03/15/17 17:37 03/15/17 17:37 03/15/17 17:37 03/15/17 17:37 03/15/17 17:37 - Laboratory Result Diagrams: 03/15/17 23:55 03/15/17 23:55 Discharge - Discharge Clinical Impression: Vaginal bleeding in patient at less than 20 weeks gestation Condition: Stable Disposition: HOME, SELF-CARE Instructions: Bleeding During Early ([facility]) Additional Instructions: Maintain fluids Proper hygenic technique Keep the skin clean Tylenol as needed Recheck with your OBGYN/health dept in 2-3 days* you will need further labs and another US performed next week most likely F/u with your PCM in 1 week for a recheck Return to the ED with any worsening symptoms and/or development of fever, headache, chest pain, palpitations, syncope, shortness of breath, trouble breathing, abdominal pain, n/v/d, blood in stool/urine, loss of control of bowel /bladder, urinary retention, worsening vaginal bleeding/cramping, or other worsening symptoms that are concerning to you. [facility] - [facility]
[2017-03-15 23:53] LABS: APPEARANCE,URINE CLEAR; BILIRUBIN,URINE NEGATIVE (NEGATIVE); COLOR,URINE STRAW; GLUCOSE, URINE NEGATIVE (NEGATIVE); KETONES,URINE NEGATIVE (NEGATIVE); LEUKOCYTE ESTERASE,URINE NEGATIVE (NEGATIVE); NITRITE,URINE NEGATIVE (NEGATIVE); PROTEIN,URINE NEGATIVE (NEGATIVE); URINE SPECIFIC GRAVITY 1.004; UROBILINOGEN,URINE NEGATIVE mg/dL (<2.0)
[2017-03-15 23:59] LABS: ABSOLUTE BASOPHILS # (AUTO) 0.1 10^3/uL (0.0-0.2); ABSOLUTE EOSINOPHILS # (AUTO) 0.2 10^3/uL (0.0-0.6); ABSOLUTE LYMPHOCYTES (AUTO) 2.8 10^3/uL (0.5-4.7); ABSOLUTE MONOCYTES (AUTO) 0.9 10^3/uL (0.1-1.4); ABSOLUTE NEUT (AUTO) 8.9 10^3/uL (1.7-8.2); BASOPHILS % (AUTO) 0.5 % (0-2); EOSINOPHILS % (AUTO) 1.2 % (0-6); HEMOGLOBIN 12.8 g/dL (12.0-15.5); LYMPHOCYTES % (AUTO) 21.9 % (13-45); MEAN CORPUSCULAR HEMOGLOBIN 31.3 pg (27.0-33.4); MEAN CORPUSCULAR HGB CONC 33.6 g/dL (32.0-36.0); MEAN CORPUSCULAR VOLUME 93 fl (80-97); MONOCYTES % (AUTO) 7.3 % (3-13); PLATELET COUNT 325 10^3/uL (150-450); RED BLOOD COUNT 4.07 10^6/uL (3.72-5.28); RED CELL DISTRIBUTION WIDTH 13.8 % (11.5-14.0); SEGMENTED NEUTROPHILS % (AUTO) 69.1 % (42-78); TOTAL CELLS COUNTED % (AUTO) 100 %; WHITE BLOOD COUNT 12.9 10^3/uL (4.0-10.5)
[2017-03-16 00:23] LABS: ALANINE AMINOTRANSFERASE 31 U/L (9-52); ALBUMIN 4.2 g/dL (3.5-5.0); ALKALINE PHOSPHATASE 57 U/L (38-126); ANION GAP 9 (5-19); ASPARTATE AMINO TRANSFERASE 19 U/L (14-36); BILIRUBIN,DIRECT 0.3 mg/dL (0.0-0.4); BILIRUBIN,TOTAL 0.3 mg/dL (0.2-1.3); BLOOD UREA NITROGEN 14 mg/dL (7-20); CALCIUM 9.9 mg/dL (8.4-10.2); CARBON DIOXIDE 27 mmol/L (22-30); CHLORIDE 100 mmol/L (98-107); GLUCOSE 68 mg/dL (75-110); POTASSIUM 4.3 mmol/L (3.6-5.0); SODIUM 135.6 mmol/L (137-145); TOTAL PROTEIN 7.5 g/dL (6.3-8.2)
--- NOTE | 2017-03-16 01:17 | RADIOLOGY REPORT (SQ) ---
EXAM DESCRIPTION: U/S OB TRANSVAG W/DOPPLER CLINICAL HISTORY: 41 years, Female, , spotting COMPARISON: 02/29/2016. TECHNIQUE: Real-time thorne scale sonographic imaging was acquired through the pelvis with the transducer and transabdominal and transvaginal positions. Additional spectral and color Doppler imaging provided. LIMITATIONS: None. FINDINGS: Cervix closed and measures 2.8 cm. Uterus measures 13.7 x 7.3 cm. The left ovary measures 2.5 x 2.2 cm with normal ovarian blood flow. There is an intrauterine gestational sac with a single pole. Dorrington-rump length 1 cm. Heart rate 140 bpm. Yolk sac is identified. There are two anechoic areas around the gestational sac suggesting hemorrhage. The smaller of the two areas appears slightly ovoid. Recommend follow-up as other etiology is not entirely excluded. IMPRESSION: Living IUP corresponding to seven weeks one day Anechoic areas around the gestational sac which may reflect hemorrhage. One of the areas appears slightly ovoid however. Other etiology not entirely excluded. Recommend follow-up imaging in one week and correlation with beta-hCG Unremarkable left ovary. Right ovary is not seen 2010 [employer]- All Rights Reserved
[2017-03-16 01:44] VITALS: BP 108/75
== END 2017-03-16 01:45 | disposition home or self-care (01) ==
LOC: ER 17:31
DX: O46.91 Antepartum hemorrhage, unspecified, first trimester (principal); Z3A.08 8 weeks gestation of pregnancy; F17.200 Nicotine dependence, unspecified, uncomplicated
CPT/HCPCS: 36415; 76817; 80053; 81001; 84702; 85025; 87086; 93976; 99284

== ENCOUNTER → 2017-03-23 | Outpatient (CLI) | payer SELFPAY ==
--- NOTE | 2017-03-24 08:23 | RADIOLOGY REPORT (SQ) ---
EXAM DESCRIPTION: U/S MY5ALDT TRNABD 1GES W/ODOP COMPLETED DATE/TIME: 03/23/2017 6:18 pm REASON FOR STUDY: ENCOUNTER FOR SUPERVISION OF OTHER NORMAL ,FIRST TRIMESTER Z34.[address] FOR SUPRVSN OF NORMAL , FIRST TRIM COMPARISON: OB ultrasound 03/15/2017, OB ultrasound 02/28/2017 TECHNIQUE: Transabdominal and endovaginal static and realtime grayscale images acquired of the pelvi s. Additional selected spectral and color Doppler images recorded. All images stored on PACs. bHCG: Not available LIMITATIONS: Large patient, anteverted uterus. FINDINGS: Intrauterine gestational sac is present containing an embryo and yolk sac. By crown-rump length, estimated age is 6 weeks 5 days, estimated due date 11/18/2017. We were unable to document em bryo cardiac activity on real-time scanning, color flow, or M-mode mode Doppler transabdominaly or en dovaginally. Embryo demise is suspected, no interval growth since prior ultrasound 03/15/2017. These findings were discussed with Madelaine Cannon at the Health Department, 03/24/2017, 0800 hours SUBCHORIONIC BLEED: Not identified SIZE OF BLEED: Not applicable. UTERUS: No masses. No anomalies. Uterus is 15 x 7 x 6 cm in size CERVICAL LENGTH: 3.3 cm Closed. RIGHT ADNEXA: Not visualized due to adnexal bowel gas LEFT ADNEXA: Not visualized due to adnexal bowel gas FREE FLUID: None. OTHER: No other significant finding. IMPRESSION: Findings worrisome for embryo demise. Trimester of : First - 0 to 13 weeks. TECHNICAL DOCUMENTATION: JOB ID: [id number] [employer]- All Rights Reserved
== END ==
LOC: RAD 16:59
PROVIDERS: ATTEND Nurse Practitioner Women's Health
DX: Z34.81 Encounter for supervision of other normal pregnancy, first trimester (principal)
CPT/HCPCS: 76801

== ENCOUNTER → 2017-03-27 | Outpatient (CLI) | payer SELFPAY | LOC: LAB 13:51 | PROVIDERS: ATTEND Nurse Practitioner Women's Health | DX: O36.80X0 Pregnancy with inconclusive fetal viability, not applicable or unspecified (principal) | CPT/HCPCS: 36415; 84702 ==

== ENCOUNTER → 2017-03-29 | Outpatient (CLI) | payer SELFPAY | LOC: OCH 14:38 | PROVIDERS: ATTEND Nurse Practitioner Women's Health | DX: O36.80X0 Pregnancy with inconclusive fetal viability, not applicable or unspecified (principal) | CPT/HCPCS: 36415; 84702 ==

== ENCOUNTER 2017-04-20 14:38 | Emergency (ER) | payer MEDICAID ==
[2017-04-20 14:47] VITALS: BP 136/73
--- NOTE | 2017-04-20 15:17 | ER Document Report ---
ED Medical Screen (RME) - General Chief Complaint: Vaginal Bleeding Stated Complaint: VAGINAL SPOTTING Time Seen by Provider: 04/20/17 15:14 Notes: on 03/23/17 pt had ultrasound that showed demise. pt referred for d and c. pt did not go and pt returns with spotting. TRAVEL OUTSIDE OF THE [place].S. IN LAST 30 DAYS: No - Related Data Allergies/Adverse Reactions: No Known Allergies Allergy (Verified 04/20/17 15:06) Past Medical History - General Last Menstrual Period: 01/19/2017 - Social History Chew tobacco use (# tins/day): No Frequency of alcohol use: None Drug Abuse: None Endocrine Medical History: Reports: Hx Hypothyroidism Renal/ Medical History: Denies: Hx Peritoneal Dialysis Past Surgical History: Reports: Hx Section - x3 - Immunizations Immunizations up to date: Yes Hx Diphtheria, Pertussis, Tetanus Vaccination: Yes Physical Exam - Vital signs Vitals: Temp Pulse Resp BP Pulse Ox 98.0 F 82 17 136/73 H 100 04/20/17 14:46 04/20/17 14:46 04/20/17 14:46 04/20/17 14:46 04/20/17 14:46 Course - Vital Signs Vital signs: Temp Pulse Resp BP Pulse Ox 98.0 F 82 17 136/73 H 100 04/20/17 14:46 04/20/17 14:46 04/20/17 14:46 04/20/17 14:46 04/20/17 14:46
[2017-04-20 16:07] LABS: ABSOLUTE EOSINOPHILS # (AUTO) 0.3 10^3/uL (0.0-0.6); ABSOLUTE LYMPHOCYTES (AUTO) 2.2 10^3/uL (0.5-4.7); ABSOLUTE MONOCYTES (AUTO) 0.7 10^3/uL (0.1-1.4); ABSOLUTE NEUT (AUTO) 5.6 10^3/uL (1.7-8.2); BASOPHILS % (AUTO) 0.4 % (0-2); EOSINOPHILS % (AUTO) 3.5 % (0-6); HEMATOCRIT 36.5 % (36.0-47.0); HEMOGLOBIN 12.3 g/dL (12.0-15.5); MEAN CORPUSCULAR HEMOGLOBIN 31.5 pg (27.0-33.4); MEAN CORPUSCULAR HGB CONC 33.6 g/dL (32.0-36.0); MEAN CORPUSCULAR VOLUME 94 fl (80-97); MONOCYTES % (AUTO) 7.6 % (3-13); PLATELET COUNT 285 10^3/uL (150-450); RED BLOOD COUNT 3.89 10^6/uL (3.72-5.28); RED CELL DISTRIBUTION WIDTH 13.6 % (11.5-14.0); SEGMENTED NEUTROPHILS % (AUTO) 63.5 % (42-78); TOTAL CELLS COUNTED % (AUTO) 100 %; WHITE BLOOD COUNT 8.8 10^3/uL (4.0-10.5)
[2017-04-20 16:13] LABS: APPEARANCE,URINE CLEAR; BILIRUBIN,URINE NEGATIVE (NEGATIVE); COLOR,URINE YELLOW; GLUCOSE, URINE NEGATIVE (NEGATIVE); KETONES,URINE NEGATIVE (NEGATIVE); LEUKOCYTE ESTERASE,URINE NEGATIVE (NEGATIVE); NITRITE,URINE NEGATIVE (NEGATIVE); PROTEIN,URINE NEGATIVE (NEGATIVE); UROBILINOGEN,URINE NEGATIVE mg/dL (<2.0)
[2017-04-20 16:22] LABS: ALANINE AMINOTRANSFERASE 22 U/L (9-52); ALBUMIN 3.9 g/dL (3.5-5.0); ALKALINE PHOSPHATASE 54 U/L (38-126); ANION GAP 10 (5-19); ASPARTATE AMINO TRANSFERASE 21 U/L (14-36); BLOOD UREA NITROGEN 18 mg/dL (7-20); CALCIUM 9.3 mg/dL (8.4-10.2); CARBON DIOXIDE 26 mmol/L (22-30); CHLORIDE 101 mmol/L (98-107); GLUCOSE 71 mg/dL (75-110); POTASSIUM 3.5 mmol/L (3.6-5.0); SODIUM 137.3 mmol/L (137-145); TOTAL PROTEIN 6.9 g/dL (6.3-8.2)
[2017-04-20 16:42] LABS: BILIRUBIN,TOTAL < 0.1 mg/dL (0.2-1.3)
--- NOTE | 2017-04-20 17:10 | ER Document Report ---
ED GI/ - General Chief Complaint: Vaginal Bleeding Stated Complaint: VAGINAL SPOTTING Time Seen by Provider: 04/20/17 15:14 Mode of Arrival: Ambulatory Information source: Patient Notes: 41-year-old female wants to know what is going on she is having some painless vaginal spotting for 3-4 days. She was told by the health department after a ultrasound on March 20 that showed suspected demise on ultrasound due to no heart tones. She has had 3 miscarriages in the past so she really did not understand what was going on because she has not had heavy vaginal bleeding or cramping. She also is very concerned because the pregnancies father was cheating on her and the health department did not screen her for STDs. Last menstrual period end of December she should be 12 weeks. No fever or chills. No dysuria frequency or urgency. No pelvic or abdominal pain. She does state that her abdomen is protuberant and did not go down in size. She states that [place] has not treated her correctly and that she wants to go to [place] to figure out with going on he did not appreciate the way she was treated at the health department. TRAVEL OUTSIDE OF THE [place].S. IN LAST 30 DAYS: No - Related Data Allergies/Adverse Reactions: No Known Allergies Allergy (Verified 04/20/17 15:06) Past Medical History - General Information source: Patient Last Menstrual Period: 01/19/2017 - Social History Smoking Status: Never Smoker Chew tobacco use (# tins/day): No Frequency of alcohol use: None Drug Abuse: None Family History: Arthritis, CAD, CVA, DM, Hyperlipidemia, Hypertension Patient has suicidal ideation: No Patient has homicidal ideation: No Endocrine Medical History: Reports: Hx Hypothyroidism Renal/ Medical History: Denies: Hx Peritoneal Dialysis Past Surgical History: Reports: Hx Section - x3, Hx Dilation and Curettage Other: [id number] - Immunizations Immunizations up to date: Yes Hx Diphtheria, Pertussis, Tetanus Vaccination: Yes Review of Systems - Review of Systems Constitutional: No symptoms reported EENT: No symptoms reported Cardiovascular: No symptoms reported Respiratory: No symptoms reported Gastrointestinal: No symptoms reported Genitourinary: No symptoms reported Female Genitourinary: See HPI Musculoskeletal: No symptoms reported Skin: No symptoms reported Hematologic/Lymphatic: No symptoms reported Neurological/Psychological: No symptoms reported Physical Exam - Vital signs Vitals: Temp Pulse Resp BP Pulse Ox 98.0 F 82 17 136/73 H 100 04/20/17 14:46 04/20/17 14:46 04/20/17 14:46 04/20/17 14:46 04/20/17 14:46 Interpretation: Normal - General General appearance: Appears well, Alert In distress: None - HEENT Head: Normocephalic, Atraumatic Eyes: Normal Pupils: PERRL Neck: Supple. No: Lymphadenopathy - Respiratory Respiratory status: No respiratory distress Chest status: Nontender Breath sounds: Normal Chest palpation: Normal - Cardiovascular Rhythm: Regular Heart sounds: Normal auscultation Murmur: No - Abdominal Inspection: Normal Distension: No distension, Other - obese abdomen, soft, no uterus palpater Bowel sounds: Normal Tenderness: Nontender Organomegaly: No organomegaly - Back Back: Normal, Nontender - Extremities General upper extremity: Normal inspection, Nontender, Normal color, Normal ROM , Normal temperature General lower extremity: Normal inspection, Nontender, Normal color, Normal ROM , Normal temperature, Normal weight bearing. No: Yulisa's sign - Neurological Neuro grossly intact: Yes Cognition: Normal Orientation: AAOx4 Maryellen Coma Scale Eye Opening: Spontaneous [place] Coma Scale Verbal: Oriented [place] Coma Scale Motor: Obeys Commands [place] Coma Scale Total: 15 Speech: Normal Motor strength normal: LUE, RUE, LLE, RLE Sensory: Normal - Psychological Associated symptoms: Normal affect, Normal mood - Skin Skin Temperature: Warm Skin Moisture: Dry Skin Color: Normal Skin irregularity: negative: Rash Course - Re-evaluation Re-evalutation: 04/20/17 19:[address] Rascon to find out how long the patient should expect it to be before she has heavy vaginal bleeding and he said he can take up to 10-12 weeks so within the next 2-4 weeks she would be setting her lining. The ultrasound today again showed no heart tones with no enlargement. I spoke at length with the mother what this meant and she understands what the expectation is for her body. I told her that she can return to the emergency room for any pain heavy vaginal bleeding that she is concerned about. And explained to her that she can [facility] with [facility]. - Vital Signs Vital signs: Temp Pulse Resp BP Pulse Ox 98.0 F 82 17 136/73 H 100 04/20/17 14:46 04/20/17 14:46 04/20/17 14:46 04/20/17 14:46 04/20/17 14:46 - Laboratory Result Diagrams: 04/20/17 15:40 04/20/17 15:40 Laboratory results interpreted by me: 04/20/17 15:40 Potassium 3.5 L Glucose 71 L Total Bilirubin < 0.1 L Beta HCG, Quant 72020.00 H Discharge - Discharge Clinical Impression: Incomplete miscarriage Condition: Good Disposition: HOME, SELF-CARE Instructions: Miscarriage Impending ([facility]) Additional Instructions: Tylenol for discomfort Return to the emergency room for a bleeding or cramping that you cannot manage at home You can follow[facility] with [facility]. Referrals: TONI RASCON MD [ACTIVE STAFF] - Follow up as needed
[2017-04-20 17:47] LABS: BACTERIA (WET MOUNT) 4+ BACTERIA SEEN; EPITHELIALS (WET MOUNT) 4+ EPITHELIALS SEEN; RBCS (WET MOUNT) NO RBCS SEEN; T.VAGINALIS (WET MOUNT) NO TRICHOMONAS SEEN; WBCS (WET MOUNT) 1+ WBCS SEEN; YEAST (WET MOUNT) NO YEAST SEEN
--- NOTE | 2017-04-20 19:35 | RADIOLOGY REPORT (SQ) ---
EXAM DESCRIPTION: U/S OB TRANSVAGINAL W/O DOP COMPLETED DATE/TIME: 04/20/2017 7:23 pm REASON FOR STUDY: painless spotting, HCG 14,146 COMPARISON: None. TECHNIQUE: 03/23/2017. Static and realtime grayscale images acquired of the pelvis. Additional select ed spectral and color Doppler images recorded. All images stored on PACs. bHC,146. There has been progressive decrease in this value over the past few weeks, 03/27/2017 th e value was 166,960, 03/29/2017 the value was 135,940. LIMITATIONS: None. FINDINGS: FETUS: Single intrauterine . EGA: 8 week 4 day. SUYAPA: 11/26/2017. FHR: No cardiac activity detected. SUBCHORIONIC BLEED: No. SIZE OF BLEED: Not applicable. UTERUS: No masses. No anomalies. CERVICAL LENGTH: 3.1 cm. Closed. RIGHT ADNEXA: Ovary not identified. No adnexal free fluid. No adnexal masses. LEFT ADNEXA: Ovary not identified. No adnexal free fluid. No adnexal masses. FREE FLUID: None. OTHER: No other significant finding. IMPRESSION: UNABLE TO DETECT HEARTBEAT, CONCERNING FOR DEMISE. EGA 8 WEEK 4 DAY. Trimester of : First - 0 to 13 weeks. TECHNICAL DOCUMENTATION: JOB ID: [id number] [employer]- All Rights Reserved Reading location - IP/workstation name: [email or web address]
[2017-04-20 20:06] LABS: CHLAM PCR NOT DETECTED (NOT DETECT); GON PCR NOT DETECTED (NOT DETECT)
== END 2017-04-20 20:16 | disposition home or self-care (01) ==
LOC: ER 14:38
DX: O03.4 Incomplete spontaneous abortion without complication (principal); Z3A.08 8 weeks gestation of pregnancy
CPT/HCPCS: 36415; 76817; 80053; 81001; 84702; 85025; 86900; 86901; 87210; 87491; 87591; 99284

== ENCOUNTER 2017-04-22 16:25 | Emergency (ER) | payer MEDICAID ==
[2017-04-22] MEDS ORDERED: NORMAL SALINE 1000 ML 1,000 ML IV PRN (16:52)
--- NOTE | 2017-04-22 16:52 | ER Document Report ---
ED Medical Screen (RME) - General Chief Complaint: Vaginal Bleeding Stated Complaint: VAGINAL BLEEDING Time Seen by Provider: 04/22/17 16:51 Mode of Arrival: Ambulatory Information source: Patient Notes: 41-year-old female approximately 11 weeks , status post ultrasound a few days ago at which time she was told she was going to have a miscarriage, presents to the emergency room with vaginal bleeding, pelvic pain. TRAVEL OUTSIDE OF THE [place] IN LAST 30 DAYS: No - Related Data Allergies/Adverse Reactions: No Known Allergies Allergy (Verified 04/22/17 16:27) Past Medical History Endocrine Medical History: Reports: Hx Hypothyroidism Renal/ Medical History: Denies: Hx Peritoneal Dialysis Past Surgical History: Reports: Hx Section - x3, Hx Dilation and Curettage - Immunizations Immunizations up to date: Yes Hx Diphtheria, Pertussis, Tetanus Vaccination: Yes Physical Exam - Vital signs Vitals: Temp Pulse Resp BP Pulse Ox 98.3 F 84 18 117/93 H 100 04/22/17 16:31 04/22/17 16:31 04/22/17 16:31 04/22/17 16:31 04/22/17 16:31 Course - Vital Signs Vital signs: Temp Pulse Resp BP Pulse Ox 98.3 F 84 18 117/93 H 100 04/22/17 16:31 04/22/17 16:31 04/22/17 16:31 04/22/17 16:31 04/22/17 16:31
[2017-04-22] MEDS ORDERED: ONDANSETRON HCL INJ/PF 4 MG/2 ML SDV IV ONE (16:53)
[2017-04-22] MEDS ORDERED: MORPHINE SULFATE 10 MG/ML INJ IV ONE (16:53)
[2017-04-22] MEDS ORDERED: HYDROMORPHONE HCL INJ/PF 2 MG/ML AMPULE IV ONE (16:57)
[2017-04-22 17:39] LABS: ABSOLUTE LYMPHOCYTES (AUTO) 1.3 10^3/uL (0.5-4.7); ABSOLUTE MONOCYTES (AUTO) 0.6 10^3/uL (0.1-1.4); ABSOLUTE NEUT (AUTO) 13.3 10^3/uL (1.7-8.2); BASOPHILS % (AUTO) 0.1 % (0-2); EOSINOPHILS % (AUTO) 0.2 % (0-6); HEMATOCRIT 37.6 % (36.0-47.0); HEMOGLOBIN 12.4 g/dL (12.0-15.5); LYMPHOCYTES % (AUTO) 8.5 % (13-45); MEAN CORPUSCULAR HEMOGLOBIN 30.9 pg (27.0-33.4); MEAN CORPUSCULAR HGB CONC 32.9 g/dL (32.0-36.0); MEAN CORPUSCULAR VOLUME 94 fl (80-97); MONOCYTES % (AUTO) 3.7 % (3-13); PLATELET COUNT 283 10^3/uL (150-450); RED BLOOD COUNT 4.02 10^6/uL (3.72-5.28); RED CELL DISTRIBUTION WIDTH 13.7 % (11.5-14.0); SEGMENTED NEUTROPHILS % (AUTO) 87.5 % (42-78); TOTAL CELLS COUNTED % (AUTO) 100 %; WHITE BLOOD COUNT 15.2 10^3/uL (4.0-10.5)
[2017-04-22 17:42] LABS: INTERNATIONAL RATION (INR) 0.93; PROTHROMBIN TIME 13.1 SEC (11.4-15.4)
[2017-04-22 17:49] LABS: ALANINE AMINOTRANSFERASE 28 U/L (9-52); ALBUMIN 3.8 g/dL (3.5-5.0); ALKALINE PHOSPHATASE 50 U/L (38-126); ANION GAP 8 (5-19); ASPARTATE AMINO TRANSFERASE 21 U/L (14-36); BILIRUBIN,DIRECT 0.1 mg/dL (0.0-0.4); BILIRUBIN,TOTAL 0.2 mg/dL (0.2-1.3); BLOOD UREA NITROGEN 14 mg/dL (7-20); CALCIUM 9.5 mg/dL (8.4-10.2); CARBON DIOXIDE 25 mmol/L (22-30); CHLORIDE 101 mmol/L (98-107); GLUCOSE 122 mg/dL (75-110); POTASSIUM 4.1 mmol/L (3.6-5.0); SODIUM 134.3 mmol/L (137-145); TOTAL PROTEIN 6.6 g/dL (6.3-8.2)
--- NOTE | 2017-04-22 18:38 | ER Document Report ---
ED GI/ - General Mode of Arrival: Ambulatory Information source: Patient TRAVEL OUTSIDE OF THE [place] IN LAST 30 DAYS: No <LEONELA RAUSCH - Last Filed: 04/22/17 18:34> <RAMSEY DORAN - Last Filed: 04/22/17 20:15> - General Chief Complaint: Vaginal Bleeding Stated Complaint: VAGINAL BLEEDING Time Seen by Provider: 04/22/17 16:51 Notes: Patient is a 41-year-old female who presents to the ER today for miscarriage, increased bleeding. Patient was seen here a few days ago, diagnosed with having a miscarriage as there was no heart rate on ultrasound and advised to return if bleeding worsened. Patient states that she thought she was approximately 11 weeks at that time. Ultrasound revealed that she was 8 weeks along with no heart tone. Patient states that her bleeding has increased since and she has been passing large clots. She admits to feeling weak. (LEONELA RAUSCH) - Related Data Allergies/Adverse Reactions: No Known Allergies Allergy (Verified 04/22/17 16:27) Past Medical History - General Information source: Patient - Social History Smoking Status: Unknown if Ever Smoked Family History: Arthritis, CAD, CVA, DM, Hyperlipidemia, Hypertension Endocrine Medical History: Reports: Hx Hypothyroidism Renal/ Medical History: Denies: Hx Peritoneal Dialysis Past Surgical History: Reports: Hx Section - x3, Hx Dilation and Curettage - Immunizations Immunizations up to date: Yes Hx Diphtheria, Pertussis, Tetanus Vaccination: Yes <LEONELA RAUSCH - Last Filed: 04/22/17 18:34> Review of Systems - Review of Systems Constitutional: No symptoms reported EENT: No symptoms reported Cardiovascular: No symptoms reported Respiratory: No symptoms reported Gastrointestinal: No symptoms reported Genitourinary: No symptoms reported Female Genitourinary: See HPI Musculoskeletal: No symptoms reported Skin: No symptoms reported Hematologic/Lymphatic: No symptoms reported Neurological/Psychological: No symptoms reported <LEONELA RAUSCH - Last Filed: 04/22/17 18:34> Physical Exam <LEONELA RAUSCH - Last Filed: 04/22/17 18:34> <RAMSEY DORAN - Last Filed: 04/22/17 20:15> - Vital signs Vitals: Temp Pulse Resp BP Pulse Ox 98.3 F 84 18 117/93 H 100 04/22/17 16:31 04/22/17 16:31 04/22/17 16:31 04/22/17 16:31 04/22/17 16:31 - Notes Notes: PHYSICAL EXAMINATION: GENERAL: Uncomfortable appearing, but in no acute distress. HEAD: Atraumatic, normocephalic. EYES: Pupils equal round and reactive to light, extraocular movements intact, sclera anicteric, conjunctiva are normal. NECK: Normal range of motion, supple without lymphadenopathy LUNGS: CTAB and equal. No wheezes rales or rhonchi. HEART: Regular rate and rhythm without murmurs ABDOMEN: Soft, Mild suprapubic, right lower quadrant and left lower quadrant tenderness. No guarding, no rebound BACK: no vertebral tenderness, normal ROM GI/: no CVA tenderness EXTREMITIES: Normal range of motion, no pitting edema. No cyanosis. NEUROLOGICAL: Cranial nerves grossly intact. Normal sensory/motor exams. PSYCH: Normal mood, normal affect. SKIN: Warm, Dry, normal turgor, no rashes or lesions noted (LEONELA RAUSCH) Course - Laboratory Result Diagrams: 04/22/17 17:20 04/22/17 17:20 <LEONELA RAUSCH - Last Filed: 04/22/17 18:34> - Laboratory Result Diagrams: 04/22/17 17:20 04/22/17 17:20 <RAMSEY DORAN - Last Filed: 04/22/17 20:15> - Re-evaluation Re-evalutation: 04/22/17 18:37 Patient feels better after being given Dilaudid in triage. Ultrasound is pending at this time. Hemoglobin is normal. 04/22/17 18:37 Patient has a positive blood type, Reglan is not indicated. HCG levels have decreased by about half, expectedly. (LEONELA RAUSCH) 04/22/17 20:12 I took over care for the result of the US. See results. No obvious 'parts' in the vaginal canal. Presumed blood products at the cervix per US. Recheck with OBGYN in 1-3 days. Return to the ED with any worsening/concerning symptoms otherwise as reviewed discharge. Patient is in agreement. (RAMSEY DORAN) - Vital Signs Vital signs: Temp Pulse Resp BP Pulse Ox 98.3 F 84 18 117/93 H 100 04/22/17 16:31 04/22/17 16:31 04/22/17 16:31 04/22/17 16:31 04/22/17 16:31 - Laboratory Laboratory results interpreted by me: 04/22/17 04/22/17 17:20 17:20 WBC 15.2 H Seg Neutrophils % 87.5 H Lymphocytes % 8.5 L Absolute Neutrophils 13.3 H Sodium 134.3 L Glucose 122 H Beta HCG, Quant 7990.70 H Discharge <LEONELA RAUSCH - Last Filed: 04/22/17 18:34> <RAMSEY DORAN - Last Filed: 04/22/17 20:15> - Discharge Clinical Impression: Miscarriage Condition: Stable Disposition: HOME, SELF-CARE Instructions: Miscarriage ([facility]) Additional Instructions: Maintain adequate fluid and food intake Schedule an appointment with [facility] within the next couple days for further evaluation and management monitor for any worsening symptoms Return to the ED with any worsening symptoms and/or development of fever, headache, chest pain, palpitations, syncope, shortness of breath, trouble breathing, abdominal pain, n/v/d, blood in stool/urine, loss of control of bowel /bladder, urinary retention, muscle weakness/paralysis, saddle anesthesia, numbness/tingling, worsening vaginal bleeding/cramping/discharge, or other worsening symptoms that are concerning to you. Forms: Elevated Blood Pressure Referrals: [facility] [Provider Group] - 04/25/17 TONI SUNG MD [ACTIVE STAFF] - 04/25/17
--- NOTE | 2017-04-22 19:53 | RADIOLOGY REPORT (SQ) ---
EXAM DESCRIPTION: U/S OB TRANSVAGINAL W/O DOP COMPLETED DATE/TIME: 04/22/2017 7:40 pm REASON FOR STUDY: miscarriage, increased bleeding COMPARISON: 04/12/2017 TECHNIQUE: Transvaginal static and realtime grayscale images acquired of the pelvis. Additional gauri cted spectral and color Doppler images recorded. All images stored on PACs. [facility]3,474 LIMITATIONS: None. FINDINGS: There is a intrauterine gestational sac with yolk sac and pole. Estimated gestation al age by crown rump length is 17 weeks 2 days. No cardiac motion identified compatible with failed intrauterine . UTERUS: No masses. No anomalies. CERVIX: Post complex material presumably representing blood products. RIGHT ADNEXA: Ovary not identified. No adnexal free fluid. No adnexal masses. LEFT ADNEXA: Ovary not identified. No adnexal free fluid. No adnexal masses. FREE FLUID: None. OTHER: No other significant finding. IMPRESSION: SONOGRAPHIC FINDINGS COMPATIBLE WITH FAILED INTRAUTERINE . TECHNICAL DOCUMENTATION: JOB ID: [id number]- All Rights Reserved Reading location - IP/workstation name: [email or web address]
[2017-04-22] MEDS ORDERED: HYDROCODONE/ACETAMINOPHEN 5-325 MG (6 TAB/ER DISP) PO PRN (20:25)
[2017-04-22 20:54] VITALS: BP 122/61
== END 2017-04-22 20:54 | disposition home or self-care (01) ==
LOC: ER 16:25
DX: O03.9 Complete or unspecified spontaneous abortion without complication (principal)
CPT/HCPCS: 99284; 96374; 96375; 86900; 86901; 36415; 86850; 84702; 85025; 85610; 80053; 76817; J1170; J2405

== ENCOUNTER 2017-11-24 13:29 | Emergency (ER) | payer MEDICAID ==
[2017-11-24 13:41] VITALS: BP 126/72
[2017-11-24] MEDS ORDERED: ACETAMINOPHEN 325 MG TABLET PO ONE (14:43)
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
[2017-11-24 15:25] LABS: APPEARANCE,URINE CLEAR; BILIRUBIN,URINE NEGATIVE (NEGATIVE); COLOR,URINE YELLOW; GLUCOSE, URINE NEGATIVE (NEGATIVE); KETONES,URINE 20 mg/dL (NEGATIVE); LEUKOCYTE ESTERASE,URINE NEGATIVE (NEGATIVE); NITRITE,URINE NEGATIVE (NEGATIVE); PROTEIN,URINE NEGATIVE (NEGATIVE); URINE SPECIFIC GRAVITY 1.025
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
== END 2017-11-24 17:00 | disposition home or self-care (01) ==
LOC: ER 13:29
DX: S00.83XA Contusion of other part of head, initial encounter (principal); S06.0X0A Concussion without loss of consciousness, initial encounter; Y04.2XXA Assault by strike against or bumped into by another person, initial encounter; Y92.009 Unspecified place in unspecified non-institutional (private) residence as the place of occurrence of the external cause; E03.9 Hypothyroidism, unspecified
CPT/HCPCS: 99284; 81025; 81001; 70450; 70486; J3490

== ENCOUNTER 2017-12-01 13:06 | Emergency (ER) | payer MEDICAID ==
[2017-12-01 13:24] VITALS: BP 109/52
[2017-12-01] MEDS ORDERED: KETOROLAC TROMETHAMINE 60 MG/2 ML SDV IM ONE (13:41)
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
== END 2017-12-01 13:52 | disposition home or self-care (01) ==
LOC: ER 13:06
DX: G44.309 Post-traumatic headache, unspecified, not intractable (principal); F07.81 Postconcussional syndrome; R11.0 Nausea; H53.8 Other visual disturbances
CPT/HCPCS: 99283; 96372; J1885

== ENCOUNTER 2018-06-29 16:04 | Emergency (ER) | payer SELFPAY ==
[2018-06-29 16:59] LABS: ABSOLUTE EOSINOPHILS # (AUTO) 0.2 10^3/uL (0.0-0.6); ABSOLUTE MONOCYTES (AUTO) 0.5 10^3/uL (0.1-1.4); ABSOLUTE NEUT (AUTO) 6.1 10^3/uL (1.7-8.2); BASOPHILS % (AUTO) 0.5 % (0-2); HEMATOCRIT 38.8 % (36.0-47.0); HEMOGLOBIN 12.6 g/dL (12.0-15.5); LYMPHOCYTES % (AUTO) 22.6 % (13-45); MEAN CORPUSCULAR HEMOGLOBIN 30.5 pg (27.0-33.4); MEAN CORPUSCULAR HGB CONC 32.5 g/dL (32.0-36.0); MEAN CORPUSCULAR VOLUME 94 fl (80-97); MONOCYTES % (AUTO) 5.5 % (3-13); PLATELET COUNT 279 10^3/uL (150-450); RED BLOOD COUNT 4.13 10^6/uL (3.72-5.28); RED CELL DISTRIBUTION WIDTH 13.3 % (11.5-14.0); SEGMENTED NEUTROPHILS % (AUTO) 69.4 % (42-78); TOTAL CELLS COUNTED % (AUTO) 100 %; WHITE BLOOD COUNT 8.8 10^3/uL (4.0-10.5)
[2018-06-29 17:20] LABS: ALANINE AMINOTRANSFERASE 20 U/L (9-52); ALBUMIN 2.8 g/dL (3.5-5.0); ALKALINE PHOSPHATASE 36 U/L (38-126); ANION GAP 5 (5-19); ASPARTATE AMINO TRANSFERASE 22 U/L (14-36); BILIRUBIN,DIRECT 0.2 mg/dL (0.0-0.4); BILIRUBIN,TOTAL 0.4 mg/dL (0.2-1.3); BLOOD UREA NITROGEN 22 mg/dL (7-20); CALCIUM 8.7 mg/dL (8.4-10.2); CARBON DIOXIDE 28 mmol/L (22-30); CHLORIDE 104 mmol/L (98-107); CREATINE KINASE 148 U/L (30-135); GLUCOSE 89 mg/dL (75-110); POTASSIUM 4.5 mmol/L (3.6-5.0); SODIUM 136.8 mmol/L (137-145); TOTAL PROTEIN 5.4 g/dL (6.3-8.2)
[2018-06-29] MEDS ORDERED: NORMAL SALINE 1000 ML 1,000 ML IV ONE (17:27)
[2018-06-29 17:30] LABS: CREATINE KINASE MB 0.79 ng/mL (<4.55); TROPONIN I < 0.012 ng/mL
[2018-06-29 18:03] VITALS: BP 111/65
[2018-06-29 18:04] LABS: APPEARANCE,URINE SLIGHTLY-CLOUDY; BILIRUBIN,URINE NEGATIVE (NEGATIVE); COLOR,URINE YELLOW; GLUCOSE, URINE NEGATIVE (NEGATIVE); KETONES,URINE NEGATIVE (NEGATIVE); LEUKOCYTE ESTERASE,URINE NEGATIVE (NEGATIVE); NITRITE,URINE NEGATIVE (NEGATIVE); PROTEIN,URINE NEGATIVE (NEGATIVE); URINE SPECIFIC GRAVITY 1.014; UROBILINOGEN,URINE NEGATIVE mg/dL (<2.0)
--- NOTE | 2018-06-29 18:33 | ER Document Report ---
ED General - General Chief Complaint: Dizziness Stated Complaint: POSSIBLE SYNCOPE Time Seen by Provider: 06/29/18 18:30 Notes: Patient is a 42-year-old female without chronic medical problems who presents complaining of dizziness and near syncope. Patient states that she donated plasma and several hours thereafter she began to feel very dizzy. States symptoms started abruptly, regard them as being severe in nature when present. Symptoms have completely resolved since receiving IV fluids here in the emergency department. No obvious worsening factor when present. States she was standing in a line in the sun and became very dizzy and felt like she was going to pass out, but did not actually lose consciousness. Was able to sit down and began to feel somewhat better. Admits to very minimal p.o. intake of either food or fluid today. EMS was contacted due to the persistence of the patient's symptoms. Patient denies ever having similar symptoms after donating plasma in the past. She denies any chest pain or shortness of breath. No focal weakness or numbness. Has not seen her primary care physician regarding today's concer ns. TRAVEL OUTSIDE OF THE [place] IN LAST 30 DAYS: No - Related Data Allergies/Adverse Reactions: No Known Allergies Allergy (Verified 11/24/17 13:35) Past Medical History - General Information source: Patient - Social History Smoking Status: Never Smoker Chew tobacco use (# tins/day): No Frequency of alcohol use: None Drug Abuse: None Lives with: Family Family History: Reviewed & Not Pertinent, Arthritis, CAD, CVA, DM, Hyperlipidemia, Hypertension Patient has suicidal ideation: No Patient has homicidal ideation: No Endocrine Medical History: Reports: Hx Hypothyroidism Renal/ Medical History: Denies: Hx Peritoneal Dialysis Past Surgical History: Reports: Hx Section - x3, Hx Dilation and Curettage - Immunizations Immunizations up to date: Yes Hx Diphtheria, Pertussis, Tetanus Vaccination: Yes Review of Systems - Review of Systems Notes: Constitutional: Negative for fever. HENT: Negative for sore throat. Eyes: Negative for visual changes. Cardiovascular: Negative for chest pain. Positive for lightheadedness Respiratory: Negative for shortness of breath. Gastrointestinal: Negative for abdominal pain, positive for nausea Genitourinary: Negative for dysuria. Musculoskeletal: Negative for back pain. Skin: Negative for rash. Neurological: Negative for headaches, weakness or numbness. 10 point ROS negative except as marked above and in HPI. Physical Exam - Vital signs Vitals: Temp Pulse Resp BP Pulse Ox 98.0 F 84 16 100/56 L 97 06/29/18 16:28 06/29/18 16:28 06/29/18 16:28 06/29/18 16:28 06/29/18 16:28 Interpretation: Normal Notes: PHYSICAL EXAMINATION: GENERAL: Well-appearing, well-nourished and in no acute distress. HEAD: Atraumatic, normocephalic. EYES: Pupils equal round and reactive to light, extraocular movements intact, sclera anicteric, conjunctiva are normal. ENT: nares patent, oropharynx clear without exudates. Moist mucous membranes. NECK: Normal range of motion, supple without lymphadenopathy LUNGS: Breath sounds clear to auscultation bilaterally and equal. No wheezes rales or rhonchi. HEART: Regular rate and rhythm without murmurs ABDOMEN: Soft, nontender, normoactive bowel sounds. No guarding, no rebound. No masses appreciated. EXTREMITIES: Normal range of motion, no pitting or edema. No cyanosis. NEUROLOGICAL: No focal neurological deficits. Moves all extremities spontaneously and on command. PSYCH: Normal mood, normal affect. SKIN: Warm, Dry, normal turgor, no rashes or lesions noted. Course - Re-evaluation Re-evalutation: 06/29/18 18:32 Presentation of syncope of her likely secondary to hypovolemia after giving blood unclear etiology. Patient normotensive, alert, without focal neurologic deficits at time of arrival. Denies syncope was during exertion. No preceding symptoms of palpitations, chest pain, or shortness of breath. Patient asymptomat ic at time of arrival. EKG is without evidence of HCOM, right heart strain, ST changes to suggest ischemia, prolong QTc, delta wave, epsilon wave, or Brugada syndrome. Patient denies any family history of sudden cardiac , personal history of of structural heart disease. Patient denies any symptoms to suggest an acute PE, ME, TAD, SAH, seizure, or acute GI bleed as the etiology of their syncope today. On exam, no murmurs to suggest critical aortic stenosis as possible etiology. Based on overall clinical history, exam findings, vitals, and patients appearance, I feel it is safe for patient to be discharged home at this time with close outpatient follow-up and strict return precautions. Patient is in agreement with this plan, has verbalized indications for return to ED, and questions have been answered. - Vital Signs Vital signs: Temp Pulse Resp BP Pulse Ox 98.5 F 88 16 111/65 100 06/29/18 18:02 06/29/18 18:02 06/29/18 18:02 06/29/18 18:02 06/29/18 18:02 - Laboratory Result Diagrams: 06/29/18 16:30 06/29/18 16:30 Laboratory results interpreted by me: 06/29/18 16:30 Sodium 136.8 L BUN 22 H Alkaline Phosphatase 36 L Creatine Kinase 148 H Total Protein 5.4 L Albumin 2.8 L - EKG Interpretation by Me Additional EKG results interpreted by me: 06/29/18 18:32 Sinus rhythm, rate 81. No ST elevations or depressions. QTC is 460. Discharge - Discharge Clinical Impression: Dehydration Syncope Qualifiers: Syncope type: unspecified Qualified Code(s): R55 - Syncope and collapse Condition: Good Disposition: HOME, SELF-CARE Additional Instructions: You were seen today after an episode of passing out. Your EKG here is normal. At this time, we do not feel that your episode of passing out was from any life- threatening cause. Your episode of passing out was likely related to donating blood. Please drink plenty of fluids over the next several days. Return to emergency department if you have any further episodes of syncope, headache, weakness, numbness, chest pain, or shortness of breath. Please follow up closely with your primary care physician.
--- NOTE | 2018-06-29 19:43 | EKG REPORT ---
SEVERITY:- NORMAL ECG - SINUS RHYTHM : Confirmed by: Makayla Ramírez MD 29-Jun-2018 19:42:18
== END 2018-06-29 18:46 | disposition home or self-care (01) ==
LOC: ER 16:04
DX: R55 Syncope and collapse (principal); E86.0 Dehydration
CPT/HCPCS: 93005; 99284; 96360; 36415; 82553; 82550; 85025; 80053; 81001; 84484; 93010; J7030

== ENCOUNTER 2019-01-19 19:42 | Emergency (ER) | payer SELFPAY ==
[2019-01-19 21:29] LABS: ABSOLUTE EOSINOPHILS # (AUTO) 0.6 10^3/uL (0.0-0.6); ABSOLUTE LYMPHOCYTES (AUTO) 2.8 10^3/uL (0.5-4.7); ABSOLUTE MONOCYTES (AUTO) 0.5 10^3/uL (0.1-1.4); ABSOLUTE NEUT (AUTO) 3.9 10^3/uL (1.7-8.2); BASOPHILS % (AUTO) 0.6 % (0-2); EOSINOPHILS % (AUTO) 7.2 % (0-6); HEMATOCRIT 36.1 % (36.0-47.0); HEMOGLOBIN 12.2 g/dL (12.0-15.5); LYMPHOCYTES % (AUTO) 35.7 % (13-45); MEAN CORPUSCULAR HEMOGLOBIN 32.3 pg (27.0-33.4); MEAN CORPUSCULAR HGB CONC 33.7 g/dL (32.0-36.0); MEAN CORPUSCULAR VOLUME 96 fl (80-97); MONOCYTES % (AUTO) 6.9 % (3-13); PLATELET COUNT 292 10^3/uL (150-450); RED BLOOD COUNT 3.78 10^6/uL (3.72-5.28); RED CELL DISTRIBUTION WIDTH 13.4 % (11.5-14.0); SEGMENTED NEUTROPHILS % (AUTO) 49.6 % (42-78); TOTAL CELLS COUNTED % (AUTO) 100 %; WHITE BLOOD COUNT 7.8 10^3/uL (4.0-10.5)
[2019-01-19 21:44] LABS: ALBUMIN 3.6 g/dL (3.5-5.0); ALKALINE PHOSPHATASE 56 U/L (38-126); ANION GAP 5 (5-19); ASPARTATE AMINO TRANSFERASE 20 U/L (14-36); BILIRUBIN,DIRECT 0.1 mg/dL (0.0-0.4); BILIRUBIN,TOTAL 0.3 mg/dL (0.2-1.3); BLOOD UREA NITROGEN 18 mg/dL (7-20); CARBON DIOXIDE 30 mmol/L (22-30); CHLORIDE 106 mmol/L (98-107); GLUCOSE 71 mg/dL (75-110); POTASSIUM 4.2 mmol/L (3.6-5.0)
[2019-01-19] MEDS ORDERED: KETOROLAC TROMETHAMINE INJ/PF 30 MG/1 ML SDV IV ONE (23:10)
[2019-01-19] MEDS ORDERED: LORAZEPAM INJ 2 MG/1 ML VIAL IV ONE (23:10)
[2019-01-19] MEDS ORDERED: ONDANSETRON HCL INJ/PF 4 MG/2 ML SDV IV ONE (23:11)
[2019-01-19] MEDS ORDERED: MORPHINE SULFATE 10 MG/ML INJ IV ONE (23:11)
--- NOTE | 2019-01-19 23:13 | ER Document Report ---
ED General - General Chief Complaint: Flank Pain Stated Complaint: BACK PAIN Time Seen by Provider: 01/19/19 22:38 TRAVEL OUTSIDE OF THE [place] IN LAST 30 DAYS: No - Related Data Allergies/Adverse Reactions: No Known Allergies Allergy (Verified 01/19/19 20:49) Past Medical History - Social History Smoking Status: Never Smoker Frequency of alcohol use: None Drug Abuse: None Family History: Reviewed & Not Pertinent, Arthritis, CAD, CVA, DM, Hyperlipidemia, Hypertension Patient has suicidal ideation: No Patient has homicidal ideation: No Endocrine Medical History: Reports: Hx Hypothyroidism Renal/ Medical History: Denies: Hx Peritoneal Dialysis Past Surgical History: Reports: Hx Section - x3, Hx Dilation and Curettage - Immunizations Immunizations up to date: Yes Hx Diphtheria, Pertussis, Tetanus Vaccination: Yes Physical Exam - Vital signs Vitals: Temp Pulse Resp BP Pulse Ox 98 F 67 18 122/68 97 01/19/19 19:57 01/19/19 19:57 01/19/19 19:57 01/19/19 19:57 01/19/19 19:57 - Notes Notes: Patient presents emergency department complaining lower back pain for the past 2 days. She says she was doing a lot of activity around the house 2 days before [employer]. Yesterday she noted some some mild discomfort but was able to function throughout the day. This morning with worsening pain and difficulty moving secondary to the pain. The pain is across the lower back. And is worse with movement. The pain does not radiate into her legs. She denies any numbness or weakness in the legs is been no loss of bowel bladder function or abnormal sensation in the perirectal area. Denies any fevers chest pain nausea vomiting abdominal pain or fever but some urinary frequency but no actual dysuria hematuria. No previous history of back pain or kidney stones She also reports that she has had some nonproductive cough for the past 2 days with some wheezing but no real shortness of breath Past medical history is unremarkable Social history she does not smoke or drink Last menstrual period was last week and she still having spotting which is unusual for her Review of systems pertinent positives and negatives in HPI otherwise all the systems were reviewed and acutely negative PHYSICIAN EXAM -vital signs are noted triage note and note from triage reviewed GENERAL: Well-appearing, well-nourished and in mild distress sitting very still HEAD: Atraumatic, normocephalic. EYES: Pupils equal round and reactive to light, extraocular movements intact, sclera anicteric, conjunctiva are normal. ENT: nares patent, oropharynx clear without exudates. Moist mucous membranes. NECK: supple without lymphadenopathy tender in the midline LUNGS: Breath sounds clear to auscultation bilaterally and equal. No wheezes rales or rhonchi. Respiratory distress HEART: Regular rate and rhythm without murmurs ABDOMEN: Soft, nontender, normoactive bowel sounds. No pulsatile masses EXTREMITIES: No deformity, no edema. NEUROLOGICAL: Alert and oriented x4. Cranial nerves he has symmetrical smile facies and shoulder shrug. His motor strength is 5/5 bilaterally in the upper and lower extremities. Toes downgoing. Sensation is intact to light touch and pinprick is a negative Romberg no pain with straight leg raise PSYCH: Normal mood, normal affect. SKIN: Warm, Dry, normal turgor, no rashes or lesions noted. BACK-nontender in the midline significant pain with sitting or turning symptoms in the paravertebral area CVA tenderness Differential diagnosis was muscle skeletal strain UTI Course - Re-evaluation Re-evalutation: 01/20/19 02:46 ED patient is remained stable she was given morphine and Ativan with significant improvement of her symptoms. Able to provide a urine and was given IV fluids Medical decision making patient presents with muscle appears to be musculoskeletal back pain. Her symptoms have improved. She has no neurological deficits or no red flags she can be discharged home Dictation was done using voice recognition software. There may be some grammatical errors which are unintentional - Vital Signs Vital signs: Temp Pulse Resp BP Pulse Ox 98 F 67 18 122/68 97 01/19/19 19:57 01/19/19 19:57 01/19/19 19:57 01/19/19 19:57 01/19/19 19:57 - Laboratory Result Diagrams: 01/19/19 21:12 01/19/19 21:12 Laboratory results interpreted by me: 01/19/19 01/19/19 21:12 21:12 Eos % (Auto) 7.2 H Glucose 71 L Discharge - Discharge Clinical Impression: Low back strain Qualifiers: Encounter type: initial encounter Qualified Code(s): S39.012A - Strain of muscle, fascia and tendon of lower back, initial encounter Disposition: HOME, SELF-CARE Instructions: Oral Narcotic Medication ([facility]), Muscle Strain ([facility]) Additional Instructions: Please review the discharge instructions, they will tell you about your disease/injury and what you need to return to the ED for Return to the ED if you feel worse or can follow-up with your family doctor Rest Follow-up with your family doctor in 3 to 5 days if not better Do not take Aleve Motrin or Goody powders with the prescription pain medicine Prescriptions: Ketorolac Tromethamine [Toradol 10 mg Tablet] 10 mg PO Q6HP PRN #15 tablet PRN Reason:
[2019-01-20] MEDS ORDERED: NORMAL SALINE 1000 ML 1,000 ML IV ONE ×2 (01:18→01:19)
[2019-01-20 02:37] LABS: APPEARANCE,URINE SLIGHTLY-CLOUDY; BILIRUBIN,URINE NEGATIVE (NEGATIVE); COLOR,URINE YELLOW; GLUCOSE, URINE NEGATIVE (NEGATIVE); KETONES,URINE NEGATIVE (NEGATIVE); LEUKOCYTE ESTERASE,URINE NEGATIVE (NEGATIVE); NITRITE,URINE NEGATIVE (NEGATIVE); PROTEIN,URINE NEGATIVE (NEGATIVE); URINE SPECIFIC GRAVITY 1.019; UROBILINOGEN,URINE NEGATIVE mg/dL (<2.0)
[2019-01-20 03:08] VITALS: BP 117/83
== END 2019-01-20 03:08 | disposition home or self-care (01) ==
LOC: ER 19:42
DX: S39.012A Strain of muscle, fascia and tendon of lower back, initial encounter (principal); X58.XXXA Exposure to other specified factors, initial encounter; R05 Cough
CPT/HCPCS: 99283; 96361; 96374; 96375; 36415; 83690; 84703; 85025; 80053; 81001; J1885; J2270; J2060; J2405; J7030

== ENCOUNTER 2019-03-26 11:42 | Emergency (ER) | payer SELFPAY ==
[2019-03-26 12:27] VITALS: BP 128/64
--- NOTE | 2019-03-26 12:53 | ER Document Report ---
ED Medical Screen (RME) - General Chief Complaint: Headache Stated Complaint: HEADACHE/BLURRED VISION Time Seen by Provider: 03/26/19 12:46 Notes: HPI: 43-year-old female presenting to the emergency department complaining of intermittent right ocular headaches over the last 3 to 4 months. Patient states she does notice the most frequently after she has been sitting at her computer for several hours. Does not wear glasses has been told she should get evaluated for glasses but has never gone to an product distribution specialist to do this. Patient denies visual loss. Patient states taking Motrin or Tylenol does seem to make the headaches better as does stopping looking at a computer. Patient does report slight blurred vision out of the right eye. Patient denies chest pain shortness of breath abdominal pain weakness numbness or tingling in the extremities. Patient states that there is a family history of brain aneurysm in her father. I have greeted and performed a rapid initial assessment of this patient. A comprehensive ED assessment and evaluation of the patient, analysis of test results and completion of the medical decision making process will be conducted by additional ED providers PHYSICAL EXAMINATION: GENERAL: Well-appearing, well-nourished and in no acute distress. HEAD: Atraumatic, normocephalic. EYES: sclera anicteric, conjunctiva are normal. No photophobia. Funduscopic exam does not reveal evidence of disc edema or hemorrhage. No tenderness on palpation of the right hoahaoism region ENT: Moist mucous membranes. NECK: Normal range of motion. No bruit EXTREMITIES: no pitting or edema. No cyanosis. NEUROLOGICAL: No focal neurological deficits. Moves all extremities spontaneously and on command. PSYCH: Normal mood, normal affect. SKIN: Warm, Dry, normal turgor, no rashes or lesions noted. TRAVEL OUTSIDE OF THE [place] IN LAST 30 DAYS: No - Related Data Allergies/Adverse Reactions: No Known Allergies Allergy (Verified 01/19/19 20:49) Past Medical History Endocrine Medical History: Reports: Hx Hypothyroidism Renal/ Medical History: Denies: Hx Peritoneal Dialysis Past Surgical History: Reports: Hx Section - x3, Hx Dilation and Curettage - Immunizations Immunizations up to date: Yes Hx Diphtheria, Pertussis, Tetanus Vaccination: Yes Physical Exam - Vital signs Vitals: Temp Pulse Resp BP Pulse Ox 98.5 F 68 16 128/64 H 97 03/26/19 12:26 02/03/20 12:26 03/26/19 12:26 03/26/19 12:26 03/26/19 12:26 Course - Vital Signs Vital signs: Temp Pulse Resp BP Pulse Ox 98.5 F 68 16 128/64 H 97 03/26/19 12:26 03/26/19 12:26 03/26/19 12:26 03/26/19 12:26 03/26/19 12:26
== END 2019-03-26 13:30 | disposition left against medical advice (07) ==
LOC: ER 11:42
DX: R51 Headache (principal); H53.8 Other visual disturbances; Z53.20 Procedure and treatment not carried out because of patient's decision for unspecified reasons
CPT/HCPCS: 99283